=== PATIENT | male | born 1965 | race African-American/Black ===

== ENCOUNTER 2020-03-12 14:22 | Inpatient (IN) | payer OTHER ==
--- NOTE | 2020-03-12 17:50 | BHS.RME ---
Substance Use & Tx History - Substance Use History Alcohol Substance amount: 07/12 liqour, 8 16 oz of beer Frequency of use: Daily Substance route: Oral Date of Last Use: 03/12/20 - Last Treatment Date of last treatment: 01/14/2016 Where was last treatment: Detox Physical/Psych/Mental Status - Behavior General Behavior: Increased activity (restlessness, agitation) Eye Contact: Normal Other Behaviors: Mannerisms - Cooperativeness Cooperativeness: Cooperative - Thinking Thought Processes: Tight Thought content: Future oriented - Physical Health Problems Is patient presently having any pain?: Yes Does patient presently have any injuries (include location): No Does patient currently have a fever: No CIWA Nausea/Vomitin Muscle Tremors: 2 Anxiety: 2 Agitation: 2 Paroxysmal Sweats: No Perspiration Orientation: 0-Oriented Tacttile Disturbances: 0-None Auditory Disturbances: 1-Very Mild Visual Disturbances: 0-None Headache: 4-Moderately Severe CIWA-Ar Total Score: 13
--- NOTE | 2020-03-12 17:55 | HP ---
CIWA Score Nausea/Vomitin Muscle Tremors: 2 Anxiety: 2 Agitation: 2 Paroxysmal Sweats: No Perspiration Orientation: 0-Oriented Tacttile Disturbances: 0-None Auditory Disturbances: 1-Very Mild Visual Disturbances: 0-None Headache: 4-Moderately Severe CIWA-Ar Total Score: 13 - Admission Criteria OASAS Guidelines: Admission for Medically Managed Detox: Requires at least one of the followin. CIWA greater than 12 2. Seizures within the past 24 hours 3. Delirium tremens within the past 24 hours 4. Hallucinations within the past 24 hours 5. Acute intervention needed for co occurring medical disorder 6. Acute intervention needed for co occurring psychiatric disorder 7. Severe withdrawal that cannot be handled at a lower level of care (continued vomiting, continued diarrhea, abnormal vital signs) requiring intravenous medication and/or fluids 8. Patient presents the following: CIWA greater than 12 Admission Criteria Met: Admission criteria met Admitting History and Physical - Smoking History Smoking history: Current every day smoker Have you smoked in the past 12 months: Yes Aproximately how many cigarettes per day: 10 - Alcohol/Substance Use Hx Alcohol Use: Yes Admission ROS S - HPI Chief Complaint: I need to stop drinking Allergies/Adverse Reactions: Allergies Allergy/AdvReac Type Severity Reaction Status Date / Time pork derived (porcine) Allergy Vomiting Verified 01/24/16 19:16 shellfish derived AdvReac Severe Swelling Verified 01/24/16 19:16 tomato AdvReac Severe Hives Verified 01/25/16 12:48 peanut oil AdvReac Intermediate Vomiting Verified 01/24/16 19:16 red sauce AdvReac Severe Swelling Uncoded 01/24/16 19:16 History of Present Illness: 54 year old man with alcohol dependence presents for detox. His last detox was in 2016, he denies seizures, reports blackout 6 months ago Exam Limitations: No Limitations - Ebola screening Have you traveled outside of the country in the last 21 days: No Have you had contact with anyone from an Ebola affected area: No Have you been sick,other than usual withdrawal symptoms: No Do you have a fever: No - Review of Systems Constitutional: Loss of Appetite, Changes in sleep EENT: reports: No Symptoms Reported Respiratory: reports: No Symptoms reported Cardiac: reports: No Symptoms Reported GI: reports: Nausea, Poor Fluid Intake, Vomiting, Abdominal cramping : reports: No Symptoms Reported Musculoskeletal: reports: Joint Pain, Muscle Pain, Muscle Weakness Integumentary: reports: No Symptoms Reported Neuro: reports: Headache, Tremors Endocrine: reports: No Symptoms Reported Hematology: reports: No Symptoms Reported Psychiatric: reports: Anxious, Depressed Other Systems: Reviewed and Negative Patient History - Patient Medical History Hx Anemia: No Hx Asthma: No Hx Chronic Obstructive Pulmonary Disease (COPD): No Hx Cancer: No Hx Cardiac Disorders: No Hx Congestive Heart Failure: No Hx Hypertension: Yes Hx Hypercholesterolemia: No Hx Pacemaker: No HX Cerebrovascular Accident: No Hx Seizures: No Hx Dementia: No Hx Diabetes: No Hx Gastrointestinal Disorders: Yes (GERD) Hx Liver Disease: No Hx Genitourinary Disorders: No Hx Sexually Transmitted Disorders: No Hx Renal Disease (ESRD): No Hx Thyroid Disease: No Hx Human Immunodeficiency Virus (HIV): No Hx Hepatitis C: No Hx Depression: Yes (Bipolar) Hx Suicide Attempt: No Hx Bipolar Disorder: Yes Hx Schizophrenia: No Other Medical History: OA - Patient Surgical History Past Surgical History: Yes Hx Neurologic Surgery: No Hx Cataract Extraction: No Hx Cardiac Surgery: No Hx Lung Surgery: No Hx Breast Surgery: No Hx Breast Biopsy: No Hx Abdominal Surgery: No Hx Appendectomy: No Hx Cholecystectomy: No Hx Genitourinary Surgery: No Hx Section: No Hx Orthopedic Surgery: No Other Surgical History: NASAL SEPTAL DEVIATION SX IN 2012 Anesthesia Reaction: No - PPD History Previous Implant?: Yes Documented Results: Negative w/proof Implanted On Prior [facility] Admission?: Yes Date: 01/26/16 Results: TBD PPD to be Administered?: Yes - Smoking Cessation Smoking history: Current every day smoker Have you smoked in the past 12 months: Yes Aproximately how many cigarettes per day: 10 Hx Chewing Tobacco Use: No Initiated information on smoking cessation: Yes 'Breaking Loose' booklet given: 03/12/20 Admission Physical Exam BHS - Physical General Appearance: Yes: No Apparent Distress HEENTM: Yes: Hearing grossly Normal, Normocephalic, Normal Voice Respiratory: Yes: Chest Non-Tender, Lungs Clear, Normal Breath Sounds, No Respiratory Distress, No Accessory Muscle Use Neck: Yes: No masses,lesions,Nodules, Supple Breast: Yes: Breast Exam Deferred Cardiology: Yes: Regular Rhythm, Regular Rate, S1, S2 Abdominal: Yes: Normal Bowel Sounds, Non Tender, Soft Genitourinary: Yes: Within Normal Limits Back: Yes: Normal Inspection Musculoskeletal: Yes: full range of Motion, Muscle Pain, Muscle weakness Extremities: Yes: Tremors Neurological: Yes: marketing automation specialist II-XII NML intact, Fully Oriented, Alert, Motor Strength 5/5, Normal Mood/Affect, Normal Response Integumentary: Yes: Normal Color, Dry Lymphatic: Yes: Within Normal Limits - Diagnostic (1) Bipolar II disorder Current Visit: Yes Status: Acute (2) Nicotine dependence Current Visit: Yes Status: Acute Qualifiers: Nicotine product type: cigarettes Substance use status: uncomplicated Qualified Code(s): F17.210 - Nicotine dependence, cigarettes, uncomplicated (3) Alcohol dependence with uncomplicated withdrawal Current Visit: No Status: Chronic (4) Hypertension Current Visit: Yes Status: Chronic Qualifiers: Hypertension type: essential hypertension (5) Arthritis Current Visit: Yes Status: Acute (6) Low back pain Current Visit: Yes Status: Acute Qualifiers: Chronicity: chronic Back pain laterality: bilateral Sciatica presence: without sciatica Qualified Code(s): M54.5 - Low back pain; G89.29 - Other chronic pain (7) GERD (gastroesophageal reflux disease) Current Visit: Yes Status: Acute Qualifiers: Esophagitis presence: without esophagitis Qualified Code(s): K21.9 - Gastro-esophageal reflux disease without esophagitis Cleared for Admission S - Detox or Rehab [facility] Level of Care: Medically Managed Detox Regimen/Protocol: Librium Claeared for Rehab Admission: No Breathalyzer - Breathalyzer Breathalyzer: 0 Urine Drug Screen - Test Device Lot number: [id number] Expiration date: 10/13/21 - Control Is test valid?: Yes - Results Drug screen NEGATIVE: No Urine drug screen results: BRINDA-Cocaine Inpatient Rehab Admission - Rehab Decision to Admit Inpatient rehab admission?: No
[2020-03-12] MEDS ORDERED: BISMUTH SUBSALICYLATE 524 MG/30 ML UD PO PRN (17:57)
[2020-03-12] MEDS ORDERED: MAGNESIUM HYDROX 2400MG/30ML ORAL SUSPENSION 30 ML CUP PO PRN (17:57)
[2020-03-12] MEDS ORDERED: NICOTINE POLACRILEX 2 MG GUM BUC PRN (17:57)
[2020-03-12] MEDS ORDERED: MENTHOL/PHENOL 1 EACH UD MM PRN (17:57)
[2020-03-12] MEDS ORDERED: MAGNESIUM CITRATE 300 ML BOTTLE PO PRN (17:57)
[2020-03-12] MEDS ORDERED: chlordiazePOXIDE HCL 10 MG CAPSULE PO PRN (17:57)
[2020-03-12] MEDS ORDERED: ACETAMINOPHEN 325 MG TABLET (FP) PO PRN ×2 (17:57)
[2020-03-12] MEDS ORDERED: MAG HYDROX/AL HYDROX/SIMETH 30 ML UNIT-DOSE CUP PO PRN (17:57)
[2020-03-12] MEDS ORDERED: IBUPROFEN 400 MG TABLET (FP) PO PRN (17:57)
[2020-03-12] MEDS ORDERED: ONDANSETRON *ODT* 4 MG TABLET SL ONE (17:57)
[2020-03-12] MEDS ORDERED: METHOCARBAMOL 500 MG TABLET PO PRN (17:57)
[2020-03-12 18:14] VITALS: BMI 26.4
[2020-03-12] MEDS: hydrOXYzine PAMOATE 25 MG CAPSULE (FP) PO SCH ×2 (18:48→23:35)
[2020-03-12] MEDS: chlordiazePOXIDE HCL 25 MG CAPSULE PO SCH (23:35)
[2020-03-12] MEDS: MELATONIN 5 MG TABLETS PO SCH (23:35)
[2020-03-12] MEDS: THIAMINE HCL 100 MG TABLET (FP) PO SCH (23:36)
[2020-03-13] MEDS: chlordiazePOXIDE HCL 25 MG CAPSULE PO SCH ×3 (05:34→22:41)
[2020-03-13] MEDS: hydrOXYzine PAMOATE 25 MG CAPSULE (FP) PO SCH ×5 (05:34→22:41)
[2020-03-13] MEDS: PRENATAL VITAMINS W/ FOLIC ACID TABLET (FP) PO SCH (10:23)
[2020-03-13] MEDS: NICOTINE 7 MG/24 HOURS TOPICAL PATCH TD SCH (10:24)
[2020-03-13 11:09] LABS: BILIRUBIN,TOTAL 0.5 mg/dL (0.2-1); BLOOD UREA NITROGEN 10.5 mg/dL (7-18); CALCIUM 8.6 mg/dL (8.5-10.1); CREATININE 1.2 mg/dL (0.55-1.3); POTASSIUM 4.1 mmol/L (3.5-5.1)
--- NOTE | 2020-03-13 11:24 | PN ---
[facility] CIWA - CIWA Score Nausea/Vomitin-Mild Nausea/No Vomiting Muscle Tremors: 3 Anxiety: 3 Agitation: 2 Paroxysmal Sweats: 3 Orientation: 0-Oriented Tacttile Disturbances: 0-None Auditory Disturbances: 0-None Visual Disturbances: 0-None Headache: 0-None Present CIWA-Ar Total Score: 12 S Progress Note (SOAP) Subjective: Complaints of mild nausea, tremors, sweats, anxiety, and agitation. Objective: 03/13/20 11:23 Vital Signs 03/13/20 03/13/20 05:31 09:15 Temperature 97.2 F L 97.8 F Pulse Rate 51 L 74 Respiratory 16 17 Rate Blood Pressure 123/81 127/77 O2 Sat by Pulse 100 100 Oximetry (%) Laboratory Last Values Sodium 144 mmol/L (136-145) 03/13/20 07:20 Potassium 4.1 mmol/L (3.5-5.1) 03/13/20 07:20 Chloride 109 mmol/L (98-107) H 03/13/20 07:20 Carbon Dioxide 30 mmol/L (21-32) 03/13/20 07:20 Anion Gap 5 MMOL/L (8-16) L 03/13/20 07:20 BUN 10.5 mg/dL (7-18) 03/13/20 07:20 Creatinine 1.2 mg/dL (0.55-1.3) 03/13/20 07:20 Est GFR (CKD-EPI)AfAm 78.98 03/13/20 07:20 Est GFR (CKD-EPI)NonAf 68.14 03/13/20 07:20 Random Glucose 108 mg/dL (74-106) H 03/13/20 07:20 Calcium 8.6 mg/dL (8.5-10.1) 03/13/20 07:20 Total Bilirubin 0.5 mg/dL (0.2-1) 03/13/20 07:20 AST 19 U/L (15-37) 03/13/20 07:20 ALT 23 U/L (13-61) 03/13/20 07:20 Alkaline Phosphatase 51 U/L (45-117) 03/13/20 07:20 Total Protein 6.0 g/dl (6.4-8.2) L 03/13/20 07:20 Albumin 3.0 g/dl (3.4-5.0) L 03/13/20 07:20 Labs noted. Assessment: 03/13/20 11:24 Alert and oriented x 3, in no acute respiratory distress. Full ROM, ambulatory in unit without any assistance. Skin warm to touch without any lesions. Withdrawal symptoms. Plan: Continue detox protocol.
[2020-03-13 11:36] LABS: HEMATOCRIT 39.2 % (35.4-49); HEMOGLOBIN 12.9 GM/dL (11.7-16.9); MCH 30.6 pg (25.7-33.7); MEAN CELL VOLUME 92.9 fl (80-96); MEAN PLT VOLUME 7.5 fl (7.5-11.1); PLATELET COUNT 383 K/MM3 (134-434); RBC 4.22 M/mm3 (4.00-5.60); RDW 14.3 % (11.9-15.9); WHITE BLOOD COUNT 5.1 K/mm3 (4.0-10.0)
[2020-03-13] MEDS: THIAMINE HCL 100 MG TABLET (FP) PO SCH (22:41)
[2020-03-13] MEDS: MELATONIN 5 MG TABLETS PO SCH (22:41)
[2020-03-14] MEDS: chlordiazePOXIDE 5 MG CAPSULE PO SCH ×3 (05:12→22:14)
[2020-03-14] MEDS: hydrOXYzine PAMOATE 25 MG CAPSULE (FP) PO SCH ×5 (05:13→22:14)
[2020-03-14] MEDS: NICOTINE 7 MG/24 HOURS TOPICAL PATCH TD SCH (10:39)
[2020-03-14] MEDS: PRENATAL VITAMINS W/ FOLIC ACID TABLET (FP) PO SCH (10:39)
--- NOTE | 2020-03-14 11:23 | PN ---
S CIWA - CIWA Score Nausea/Vomitin-No Nausea/No Vomiting Muscle Tremors: 2 Anxiety: 2 Agitation: 0-Normal Activity Paroxysmal Sweats: 2 Orientation: 0-Oriented Tacttile Disturbances: 0-None Auditory Disturbances: 0-None Visual Disturbances: 0-None Headache: 2-Mild CIWA-Ar Total Score: 8 BHS Progress Note (SOAP) Subjective: c/o sweats, anxiety, shakes, and headache. Objective: 03/14/20 11:24 Vital Signs 03/14/20 03/14/20 05:35 08:45 Temperature 97.3 F L 98.6 F Pulse Rate 60 94 H Respiratory 18 18 Rate Blood Pressure 121/60 128/86 O2 Sat by Pulse 100 Oximetry (%) Laboratory Last Values WBC 5.1 K/mm3 (4.0-10.0) 03/13/20 07:30 RBC 4.22 M/mm3 (4.00-5.60) 03/13/20 07:30 Hgb 12.9 GM/dL (11.7-16.9) 03/13/20 07:30 Hct 39.2 % (35.4-49) 03/13/20 07:30 MCV 92.9 fl (80-96) 03/13/20 07:30 MCH 30.6 pg (25.7-33.7) 03/13/20 07:30 MCHC 33.0 g/dl (32.0-35.9) 03/13/20 07:30 RDW 14.3 % (11.9-15.9) 03/13/20 07:30 Plt Count 383 K/MM3 (134-434) 03/13/20 07:30 MPV 7.5 fl (7.5-11.1) 03/13/20 07:30 Sodium 144 mmol/L (136-145) 03/13/20 07:20 Potassium 4.1 mmol/L (3.5-5.1) 03/13/20 07:20 Chloride 109 mmol/L (98-107) H 03/13/20 07:20 Carbon Dioxide 30 mmol/L (21-32) 03/13/20 07:20 Anion Gap 5 MMOL/L (8-16) L 03/13/20 07:20 BUN 10.5 mg/dL (7-18) 03/13/20 07:20 Creatinine 1.2 mg/dL (0.55-1.3) 03/13/20 07:20 Est GFR (CKD-EPI)AfAm 78.98 03/13/20 07:20 Est GFR (CKD-EPI)NonAf 68.14 03/13/20 07:20 Random Glucose 108 mg/dL (74-106) H 03/13/20 07:20 Calcium 8.6 mg/dL (8.5-10.1) 03/13/20 07:20 Total Bilirubin 0.5 mg/dL (0.2-1) 03/13/20 07:20 AST 19 U/L (15-37) 03/13/20 07:20 ALT 23 U/L (13-61) 03/13/20 07:20 Alkaline Phosphatase 51 U/L (45-117) 03/13/20 07:20 Total Protein 6.0 g/dl (6.4-8.2) L 03/13/20 07:20 Albumin 3.0 g/dl (3.4-5.0) L 03/13/20 07:20 Syphilis Serology Non-reactive (NONREACTIVE) 03/13/20 07:20 COVID-19 (LEON) Not detected (Not Detected) 03/12/20 17:58 Labs noted. Assessment: 03/14/20 11:24 AOX3, in no acute respiratory distress. Full ROM, ambulating in the unit. Withdrawal symptoms. Plan: continue detox.
--- NOTE | 2020-03-14 14:49 | CONSULT ---
[facility] Psychiatric Consult - Data Date of interview: 03/14/20 Admission source: Self-referred Identifying data: Mr Brown is a for 54 years old single Black male, father of 2 children, unemployed with no source of income, homeless seeking detox treatment for alcohol and cocaine Substance Abuse History: Reports history of alcohol and cocaine use. Refer to addiction counselor's summary for further information Medical History: Significant for hypertension, GERD, arthritis right knee, gallbladder stones, low back pain, and history of surgery for nasal septal deviation in 2012. Smokes 10 cigaretees daily Psychiatric History: Patient is known for one previous admission to this facility. He reports that his first psychiatric contact was in November 2014 while admitted to [facility] for inpt rehab. He saw a psychiatrist who diagnosed him with Bipolar, Depression and anxiety and prescribed Celexa 20 mg/day, Lamictal 100 mg/day and Hydroxyzine. Following discharge, he attended [facility] er at [address] [place] [address] in [place] and was continued on same medications. Reports that he still receives OPD care at same facility but he has not seen the psychiatrist for 3 months and stopped taking all medications because he was using. Denies previous psychiatric hospitalization or suicidal attempt. At present, denies experiencing psychotic, manic or depressive symptoms. However, he is parth irritable and reports sleeping poorly Physical/Sexual Abuse/Trauma History: Denies history of physical,sexual abuse as well as DV relationship Additional Comment: Reports history of multiple arrests including 2 felony convictions. Denies being on parole/probation curently Mental Status Exam - Mental Status Exam Alert and Oriented to: Time, Place, Person Cognitive Function: Fair Patient Appearance: Well Groomed Mood: Irritable Affect: Appropriate Patient Behavior: Cooperative Speech Pattern: Clear Voice Loudness: Normal Thought Process: Intact, Goal Oriented Thought Disorder: Not Present Hallucinations: Denies Suicidal Ideation: Denies Homicidal Ideation: Denies Insight/Judgement: Poor Sleep: Poorly Appetite: Fair Muscle strength/Tone: Normal Gait/Station: Normal Psychiatric Findings - Problem List ([place] 1, 2,3) (1) Bipolar disorder Current Visit: Yes Status: Chronic (2) Substance induced mood disorder Current Visit: Yes Status: Acute (3) Substance-induced sleep disorder Current Visit: Yes Status: Acute (4) Alcohol dependence with uncomplicated withdrawal Current Visit: No Status: Acute (5) Cocaine dependence, uncomplicated Current Visit: No Status: Acute (6) Nicotine dependence Current Visit: Yes Status: Chronic Qualifiers: Nicotine product type: cigarettes Substance use status: uncomplicated Qualified Code(s): F17.210 - Nicotine dependence, cigarettes, uncomplicated (7) Arthritis Current Visit: Yes Status: Chronic (8) GERD (gastroesophageal reflux disease) Current Visit: Yes Status: Chronic Qualifiers: Esophagitis presence: without esophagitis Qualified Code(s): K21.9 - Gastro-esophageal reflux disease without esophagitis (9) Low back pain Current Visit: Yes Status: Chronic Qualifiers: Chronicity: chronic Back pain laterality: bilateral Sciatica presence: without sciatica Qualified Code(s): M54.5 - Low back pain; G89.29 - Other chronic pain (10) Hypertension Current Visit: Yes Status: Chronic Qualifiers: Hypertension type: essential hypertension Qualified Code(s): I10 - Essential (primary) hypertension - Initial Treatment Plan Initial Treatment Plan: 1) Resume Abilify 10 mg po daily and Seroquel 100 mg po HS. 2) Continue inpatient detoxification
[2020-03-14] MEDS: ARIPiprazole 10 MG TABLET PO SCH (15:30)
[2020-03-14] MEDS: THIAMINE HCL 100 MG TABLET (FP) PO SCH (22:14)
[2020-03-14] MEDS: MELATONIN 5 MG TABLETS PO SCH (22:15)
[2020-03-14] MEDS: QUEtiapine FUMARATE 100 MG TABLET (FP) PO SCH (22:19)
[2020-03-15] MEDS ORDERED: chlordiazePOXIDE HCL 10 MG CAPSULE PO PRN
[2020-03-15] MEDS: hydrOXYzine PAMOATE 25 MG CAPSULE (FP) PO SCH (05:07)
[2020-03-15] MEDS: chlordiazePOXIDE HCL 10 MG CAPSULE PO SCH ×3 (05:07→21:43)
[2020-03-15] MEDS ORDERED: hydrOXYzine PAMOATE 25 MG CAPSULE (FP) PO PRN (09:50)
--- NOTE | 2020-03-15 09:54 | PN ---
S CIWA - CIWA Score Nausea/Vomitin-No Nausea/No Vomiting Muscle Tremors: None Anxiety: 1-Mildly Anxious Agitation: 1-Slight > Activity Paroxysmal Sweats: 1-Minimal Palms Moist Orientation: 0-Oriented Tacttile Disturbances: 0-None Auditory Disturbances: 0-None Visual Disturbances: 0-None Headache: 0-None Present CIWA-Ar Total Score: 3 BHS Progress Note (SOAP) Subjective: irritable sweats Objective: 03/15/20 09:53 Vital Signs Temperature 98.5 F 03/15/20 08:37 Pulse Rate 62 03/15/20 08:37 Respiratory Rate 18 03/15/20 08:37 Blood Pressure 117/65 03/15/20 08:37 O2 Sat by Pulse Oximetry (%) 96 03/15/20 08:37 aaox3 lying down no acute distress Assessment: 03/15/20 09:54 mild withdrawals Plan: continue detox d/c in am
[2020-03-15] MEDS: ARIPiprazole 10 MG TABLET PO SCH (10:32)
[2020-03-15] MEDS: NICOTINE 7 MG/24 HOURS TOPICAL PATCH TD SCH (10:33)
[2020-03-15] MEDS: PRENATAL VITAMINS W/ FOLIC ACID TABLET (FP) PO SCH (10:33)
[2020-03-15] MEDS: MELATONIN 5 MG TABLETS PO SCH (21:43)
[2020-03-15] MEDS: QUEtiapine FUMARATE 100 MG TABLET (FP) PO SCH (21:43)
[2020-03-15] MEDS: THIAMINE HCL 100 MG TABLET (FP) PO SCH (21:43)
[2020-03-16] MEDS ORDERED: chlordiazePOXIDE HCL 10 MG CAPSULE PO ONE (05:00)
[2020-03-16 09:05] VITALS: BP 114/72; PULSE 75; TEMP 97.1
--- NOTE | 2020-03-16 09:22 | DS ---
[facility] Detox Discharge Summary Admission Date: 03/12/20 Discharge Date: 03/16/20 - History Present History: Alcohol Dependence, Cocaine Dependence - Physical Exam Results Vital Signs: Vital Signs Temperature 97.1 F L 03/16/20 08:56 Pulse Rate 75 03/16/20 08:56 Respiratory Rate 16 03/16/20 08:56 Blood Pressure 114/72 03/16/20 08:56 O2 Sat by Pulse Oximetry (%) 96 03/16/20 05:08 Pertinent Admission Physical Exam Findings: Vital Signs Temperature 97.1 F L 03/16/20 08:56 Pulse Rate 75 03/16/20 08:56 Respiratory Rate 16 03/16/20 08:56 Blood Pressure 114/72 03/16/20 08:56 O2 Sat by Pulse Oximetry (%) 96 03/16/20 05:08 Laboratory Tests 03/12/20 03/13/20 03/13/20 17:58 07:20 07:20 WBC RBC Hgb Hct MCV MCH MCHC RDW Plt Count MPV Sodium 144 Potassium 4.1 Chloride 109 H Carbon Dioxide 30 Anion Gap 5 L BUN 10.5 Creatinine 1.2 Est GFR (CKD-EPI)AfAm 78.98 Est GFR (CKD-EPI)NonAf 68.14 Random Glucose 108 H Calcium 8.6 Total Bilirubin 0.5 AST 19 ALT 23 Alkaline Phosphatase 51 Total Protein 6.0 L Albumin 3.0 L Syphilis Serology Non-reactive COVID-19 ([facility]ON) Not detected 03/13/20 07:30 WBC 5.1 RBC 4.22 Hgb 12.9 Hct 39.2 MCV 92.9 MCH 30.6 MCHC 33.0 RDW 14.3 Plt Count 383 MPV 7.5 Sodium Potassium Chloride Carbon Dioxide Anion Gap BUN Creatinine Est GFR (CKD-EPI)AfAm Est GFR (CKD-EPI)NonAf Random Glucose Calcium Total Bilirubin AST ALT Alkaline Phosphatase Total Protein Albumin Syphilis Serology COVID-19 (LEON) aaox3 ambulating no acute distress lungs CTA - Treatment Hospital Course: Detox Protocol Followed, Detoxed Safely, Responded well, Discharged Condition Good, Rehab Referral Accepted - Medication Discharge Medications: Ambulatory Orders Omeprazole [Prilosec] 40 mg PO DAILY #30 capsule. 02/13/16 Citalopram Hydrobromide [Celexa -] 20 mg PO DAILY #30 tablet 02/15/16 Lamotrigine [Lamictal -] 50 mg PO DAILY #60 tablet 02/15/16 Aripiprazole [Abilify -] 10 mg PO DAILY 03/12/20 Hydralazine HCl 25 mg PO BID 03/12/20 Ondansetron HCl [Zofran] 4 mg PO TID 03/12/20 Quetiapine Fumarate [Seroquel -] 100 mg PO HS 03/12/20 - Diagnosis (1) Bipolar II disorder Current Visit: Yes Status: Acute (2) Substance induced mood disorder Current Visit: Yes Status: Acute (3) Substance-induced sleep disorder Current Visit: Yes Status: Acute (4) Arthritis Current Visit: Yes Status: Chronic (5) Bipolar disorder Current Visit: Yes Status: Chronic (6) GERD (gastroesophageal reflux disease) Current Visit: Yes Status: Chronic Qualifiers: Esophagitis presence: without esophagitis Qualified Code(s): K21.9 - Gastro-esophageal reflux disease without esophagitis (7) Hypertension Current Visit: Yes Status: Chronic Qualifiers: Hypertension type: essential hypertension Qualified Code(s): I10 - Essential (primary) hypertension (8) Low back pain Current Visit: Yes Status: Chronic Qualifiers: Chronicity: chronic Back pain laterality: bilateral Sciatica presence: without sciatica Qualified Code(s): M54.5 - Low back pain; G89.29 - Other chronic pain (9) Nicotine dependence Current Visit: Yes Status: Chronic Qualifiers: Nicotine product type: cigarettes Substance use status: uncomplicated Qualified Code(s): F17.210 - Nicotine dependence, cigarettes, uncomplicated (10) Alcohol dependence with uncomplicated withdrawal Current Visit: Yes Status: Chronic (11) Cocaine dependence, uncomplicated Current Visit: Yes Status: Chronic - AMA Did Patient Leave Against Medical Advice: No
== END 2020-03-16 09:43 | disposition home or self-care (01) | DRG 774 ==
LOC: YASAS 14:22 → Y6N 18:20
PROVIDERS: ADMIT Allergy & Immunology; ATTEND Allergy & Immunology
PROC: HZ2ZZZZ Detoxification Services for Substance Abuse Treatment (ICD-10-PCS; principal; 2020-03-12)
DX: F10.230 Alcohol dependence with withdrawal, uncomplicated (principal); F14.20 Cocaine dependence, uncomplicated; F17.210 Nicotine dependence, cigarettes, uncomplicated; F31.81 Bipolar II disorder; F19.282 Other psychoactive substance dependence with psychoactive substance-induced sleep disorder; F19.24 Other psychoactive substance dependence with psychoactive substance-induced mood disorder; I10 Essential (primary) hypertension; K21.9 Gastro-esophageal reflux disease without esophagitis; M19.90 Unspecified osteoarthritis, unspecified site; M54.5 Low back pain; G89.29 Other chronic pain; Z56.0 Unemployment, unspecified; Z59.0 Homelessness; Z91.018 Allergy to other foods; Z91.013 Allergy to seafood
CPT/HCPCS: 36415; 80053; 85027; 86780; Q0162; U0003

== ENCOUNTER 2020-11-27 10:56 | Inpatient (IN) | payer OTHER ==
[2020-11-27 11:56] VITALS: BMI 25.7
[2020-11-27] MEDS ORDERED: BISMUTH SUBSALICYLATE 524 MG/30 ML PO PRN (12:51)
[2020-11-27] MEDS ORDERED: MAGNESIUM HYDROX 2400MG/30ML ORAL SUSPENSION 30 ML CUP PO PRN (12:51)
[2020-11-27] MEDS ORDERED: MAGNESIUM CITRATE 300 ML BOTTLE PO PRN (12:51)
[2020-11-27] MEDS ORDERED: ACETAMINOPHEN 325 MG TABLET (FP) PO PRN ×2 (12:51)
[2020-11-27] MEDS ORDERED: NICOTINE POLACRILEX 2 MG GUM BUC PRN (12:51)
[2020-11-27] MEDS ORDERED: IBUPROFEN 400 MG TABLET (FP) PO PRN (12:51)
[2020-11-27] MEDS ORDERED: LORazepam 1 MG TABLET PO PRN (12:51)
[2020-11-27] MEDS ORDERED: MAG HYDROX/AL HYDROX/SIMETH 30 ML UNIT-DOSE CUP PO PRN (12:51)
[2020-11-27] MEDS ORDERED: MENTHOL/PHENOL 1 EACH UD MM PRN (12:51)
[2020-11-27] MEDS ORDERED: METHOCARBAMOL 500 MG TABLET PO PRN (12:51)
[2020-11-27] MEDS ORDERED: ONDANSETRON *ODT* 4 MG TABLET SL PRN (12:51)
[2020-11-27] MEDS: NICOTINE 21 MG/24 HOURS TOPICAL PATCH TD SCH (15:00)
[2020-11-27] MEDS: hydrOXYzine PAMOATE 25 MG CAPSULE (FP) PO SCH ×3 (15:00→23:48)
[2020-11-27] MEDS: LORazepam 2 MG TABLET PO SCH ×2 (18:30→22:39)
[2020-11-27] MEDS: THIAMINE HCL 100 MG TABLET (FP) PO SCH (22:39)
[2020-11-27] MEDS: MELATONIN 5 MG TABLETS PO SCH (23:48)
[2020-11-28] MEDS: hydrOXYzine PAMOATE 25 MG CAPSULE (FP) PO SCH ×5 (05:26→22:40)
[2020-11-28] MEDS: LORazepam 2 MG TABLET PO SCH ×4 (05:26→22:40)
[2020-11-28 10:18] LABS: HEMATOCRIT 35.6 % (35.4-49); HEMOGLOBIN 12.1 GM/dL (11.7-16.9); MCH 30.6 pg (25.7-33.7); MEAN CELL VOLUME 89.9 fl (80-96); MEAN PLT VOLUME 6.8 fl (7.5-11.1); PLATELET COUNT 582 K/MM3 (134-434); RBC 3.96 M/mm3 (4.00-5.60); RDW 13.3 % (11.9-15.9); WHITE BLOOD COUNT 6.3 K/mm3 (4.0-10.0)
[2020-11-28 10:33] LABS: CALCIUM 8.5 mg/dL (8.5-10.1)
[2020-11-28 10:34] LABS: BLOOD UREA NITROGEN 14.5 mg/dL (7-18)
[2020-11-28 10:38] LABS: BILIRUBIN,TOTAL 0.2 mg/dL (0.2-1)
[2020-11-28 10:39] LABS: TOT PROT 6.2 g/dl (6.4-8.2)
[2020-11-28] MEDS: PRENATAL VITAMINS W/ FOLIC ACID TABLET (FP) PO SCH (10:48)
[2020-11-28] MEDS: NICOTINE 21 MG/24 HOURS TOPICAL PATCH TD SCH (10:49)
[2020-11-28] MEDS: FAMOTIDINE 20 MG TABLET PO SCH ×2 (10:50→22:39)
[2020-11-28] MEDS: MELATONIN 5 MG TABLETS PO SCH (22:39)
[2020-11-28] MEDS: THIAMINE HCL 100 MG TABLET (FP) PO SCH (22:40)
[2020-11-29] MEDS: LORazepam 1 MG TABLET PO SCH ×4 (05:36→23:13)
[2020-11-29] MEDS: hydrOXYzine PAMOATE 25 MG CAPSULE (FP) PO SCH ×5 (05:36→23:13)
[2020-11-29] MEDS: PRENATAL VITAMINS W/ FOLIC ACID TABLET (FP) PO SCH (11:01)
[2020-11-29] MEDS: FAMOTIDINE 20 MG TABLET PO SCH ×2 (11:01→23:13)
[2020-11-29] MEDS: NICOTINE 21 MG/24 HOURS TOPICAL PATCH TD SCH (11:44)
[2020-11-29] MEDS: MELATONIN 5 MG TABLETS PO SCH (23:12)
[2020-11-29] MEDS: THIAMINE HCL 100 MG TABLET (FP) PO SCH (23:13)
[2020-11-30] MEDS ORDERED: LORazepam 0.5 MG TABLET PO PRN
[2020-11-30] MEDS: hydrOXYzine PAMOATE 25 MG CAPSULE (FP) PO SCH ×5 (06:17→22:40)
[2020-11-30] MEDS: LORazepam 0.5 MG TABLET PO SCH ×4 (06:17→22:41)
[2020-11-30 10:16] LABS: HEMATOCRIT 36.2 % (35.4-49); HEMOGLOBIN 12.3 GM/dL (11.7-16.9); MCH 30.7 pg (25.7-33.7); MCHC 34.1 g/dl (32.0-35.9); MEAN CELL VOLUME 90.2 fl (80-96); MEAN PLT VOLUME 6.9 fl (7.5-11.1); PLATELET COUNT 551 K/MM3 (134-434); RBC 4.02 M/mm3 (4.00-5.60); RDW 13.2 % (11.9-15.9); WHITE BLOOD COUNT 7.3 K/mm3 (4.0-10.0)
[2020-11-30] MEDS: PRENATAL VITAMINS W/ FOLIC ACID TABLET (FP) PO SCH (10:35)
[2020-11-30] MEDS: FAMOTIDINE 20 MG TABLET PO SCH ×2 (10:35→22:40)
[2020-11-30] MEDS: NICOTINE 21 MG/24 HOURS TOPICAL PATCH TD SCH (10:36)
[2020-11-30] MEDS: MELATONIN 5 MG TABLETS PO SCH (22:40)
[2020-11-30] MEDS: THIAMINE HCL 100 MG TABLET (FP) PO SCH (22:40)
[2020-12-01] MEDS ORDERED: LORazepam 0.5 MG TABLET PO ONE (05:00)
[2020-12-01] MEDS: hydrOXYzine PAMOATE 25 MG CAPSULE (FP) PO SCH (06:23)
[2020-12-01 08:40] VITALS: BP 128/72; PULSE 67; TEMP 96.6
== END 2020-12-01 09:32 | disposition other institution (70) | DRG 774 ==
LOC: YASAS 10:56 → Y6N 14:27
PROVIDERS: ADMIT Allergy & Immunology; ATTEND Allergy & Immunology
PROC: HZ2ZZZZ Detoxification Services for Substance Abuse Treatment (ICD-10-PCS; principal; 2020-11-27)
DX: F10.230 Alcohol dependence with withdrawal, uncomplicated (principal); F14.20 Cocaine dependence, uncomplicated; F17.210 Nicotine dependence, cigarettes, uncomplicated; F31.81 Bipolar II disorder; F41.9 Anxiety disorder, unspecified; F19.24 Other psychoactive substance dependence with psychoactive substance-induced mood disorder; I10 Essential (primary) hypertension; K21.9 Gastro-esophageal reflux disease without esophagitis; M17.11 Unilateral primary osteoarthritis, right knee; M54.5 Low back pain; Z56.0 Unemployment, unspecified; Z59.0 Homelessness; Z91.013 Allergy to seafood; Z91.018 Allergy to other foods
CPT/HCPCS: 36415; 80053; 82947; 85027; 86780; C9803; U0003; U0005

== ENCOUNTER 2021-07-08 14:59 | Inpatient (IN) | payer OTHER ==
[2021-07-08 16:56] VITALS: BMI 26.4
[2021-07-08] MEDS ORDERED: hydrOXYzine PAMOATE 25 MG CAPSULE (FP) PO PRN (17:25)
[2021-07-08] MEDS ORDERED: IBUPROFEN 400 MG TABLET (FP) PO PRN (17:25)
[2021-07-08] MEDS ORDERED: DICYCLOMINE HCL 10 MG CAPSULE PO PRN (17:25)
[2021-07-08] MEDS ORDERED: MAGNESIUM HYDROX 2400MG/30ML ORAL SUSPENSION 30 ML CUP PO PRN (17:25)
[2021-07-08] MEDS ORDERED: BISMUTH SUBSALICYLATE 524 MG/30 ML PO PRN (17:25)
[2021-07-08] MEDS ORDERED: MAG HYDROX/AL HYDROX/SIMETH 30 ML UNIT-DOSE CUP PO PRN (17:25)
[2021-07-08] MEDS ORDERED: METHOCARBAMOL 500 MG TABLET PO PRN (17:25)
[2021-07-08] MEDS ORDERED: MAGNESIUM CITRATE 300 ML BOTTLE PO PRN (17:25)
[2021-07-08] MEDS ORDERED: ONDANSETRON *ODT* 4 MG TABLET SL PRN (17:25)
[2021-07-08] MEDS ORDERED: ACETAMINOPHEN 325 MG TABLET (FP) PO PRN ×2 (17:25)
[2021-07-08] MEDS ORDERED: LOPERAMIDE HCL 2 MG CAPSULE PO PRN (17:25)
[2021-07-08] MEDS ORDERED: MENTHOL/PHENOL 1 EACH UD MM PRN (17:25)
[2021-07-08] MEDS ORDERED: chlordiazePOXIDE HCL 25 MG CAPSULE PO PRN (17:27)
[2021-07-08] MEDS: MELATONIN 5 MG TABLETS PO SCH (23:56)
[2021-07-08] MEDS: THIAMINE HCL 100 MG TABLET (FP) PO SCH (23:56)
[2021-07-08] MEDS: chlordiazePOXIDE HCL 25 MG CAPSULE PO SCH (23:57)
[2021-07-09] MEDS: chlordiazePOXIDE HCL 25 MG CAPSULE PO SCH ×5 (00:03→23:28)
[2021-07-09] MEDS: OFLOXACIN 0.3% OTIC SOLUTION 5 ML BOTTLE AS SCH ×5 (00:04→23:28)
[2021-07-09] MEDS: PRENATAL VITAMINS W/ FOLIC ACID TABLET (FP) PO SCH (10:43)
[2021-07-09] MEDS: NICOTINE 7 MG/24 HOURS TOPICAL PATCH TD SCH (10:43)
[2021-07-09] MEDS: ARIPiprazole 10 MG TABLET PO SCH (10:44)
[2021-07-09] MEDS ORDERED: QUEtiapine FUMARATE 100 MG TABLET (FP) PO SCH (22:00)
[2021-07-09] MEDS: MELATONIN 5 MG TABLETS PO SCH (23:29)
[2021-07-09] MEDS: THIAMINE HCL 100 MG TABLET (FP) PO SCH (23:29)
[2021-07-10] MEDS: chlordiazePOXIDE HCL 25 MG CAPSULE PO SCH ×2 (05:57→12:09)
[2021-07-10 09:03] VITALS: BP 117/76; PULSE 67; TEMP 97.2
[2021-07-10] MEDS: OFLOXACIN 0.3% OTIC SOLUTION 5 ML BOTTLE AS SCH (12:09)
[2021-07-10] MEDS: NICOTINE 7 MG/24 HOURS TOPICAL PATCH TD SCH (12:09)
[2021-07-10] MEDS: PRENATAL VITAMINS W/ FOLIC ACID TABLET (FP) PO SCH (12:10)
[2021-07-10] MEDS: ARIPiprazole 10 MG TABLET PO SCH (12:10)
[2021-07-10 12:25] LABS: HEMATOCRIT 43.6 % (35.4-49); HEMOGLOBIN 14.3 GM/dL (11.7-16.9); MCH 28.9 pg (25.7-33.7); MCHC 32.7 g/dl (32.0-35.9); MEAN CELL VOLUME 88.5 fl (80-96); MEAN PLT VOLUME 7.3 fl (7.5-11.1); PLATELET COUNT 379 10^3/uL (134-434); RBC 4.93 M/mm3 (4.00-5.60); RDW 13.7 % (11.9-15.9); WHITE BLOOD COUNT 4.2 K/mm3 (4.0-10.0)
[2021-07-10 13:10] LABS: ALBUMIN 3.5 g/dl (3.4-5.0); BLOOD UREA NITROGEN 11.3 mg/dL (7-18); CALCIUM 9.2 mg/dL (8.5-10.1)
[2021-07-10 13:13] LABS: BILIRUBIN,DIRECT 0.1 mg/dL (0.0-0.2); TOT PROT 6.9 g/dl (6.4-8.2)
[2021-07-10 13:15] LABS: BILIRUBIN,TOTAL 0.7 mg/dL (0.2-1)
[2021-07-11] MEDS ORDERED: chlordiazePOXIDE HCL 10 MG CAPSULE PO PRN
[2021-07-11] MEDS ORDERED: chlordiazePOXIDE HCL 10 MG CAPSULE PO SCH (05:00)
[2021-07-12] MEDS ORDERED: chlordiazePOXIDE HCL 10 MG CAPSULE PO SCH (05:00)
[2021-07-13] MEDS ORDERED: chlordiazePOXIDE HCL 10 MG CAPSULE PO ONE (05:00)
== END 2021-07-10 14:08 | disposition left against medical advice (07) | DRG 770 ==
LOC: YASAS 14:59 → Y3N 21:40
PROVIDERS: ADMIT Allergy & Immunology; ATTEND Allergy & Immunology
PROC: HZ2ZZZZ Detoxification Services for Substance Abuse Treatment (ICD-10-PCS; principal; 2021-07-08)
DX: F10.230 Alcohol dependence with withdrawal, uncomplicated (principal); F14.20 Cocaine dependence, uncomplicated; F12.20 Cannabis dependence, uncomplicated; F17.210 Nicotine dependence, cigarettes, uncomplicated; F19.24 Other psychoactive substance dependence with psychoactive substance-induced mood disorder; F31.9 Bipolar disorder, unspecified; F41.9 Anxiety disorder, unspecified; U07.1 COVID-19; I10 Essential (primary) hypertension; K21.9 Gastro-esophageal reflux disease without esophagitis; M17.11 Unilateral primary osteoarthritis, right knee; M54.50 Low back pain, unspecified; Z87.19 Personal history of other diseases of the digestive system; Z56.0 Unemployment, unspecified; Z59.01 Sheltered homelessness; Z91.018 Allergy to other foods
CPT/HCPCS: 36415; 80053; 80076; 82962; 85027; 86780; C9803; U0003; U0005

== ENCOUNTER 2021-09-19 12:38 | Inpatient (IN) | payer OTHER ==
[2021-09-19] MEDS ORDERED: chlordiazePOXIDE HCL 25 MG CAPSULE PO PRN (13:21)
[2021-09-19] MEDS ORDERED: ONDANSETRON *ODT* 4 MG TABLET SL PRN (13:21)
[2021-09-19] MEDS ORDERED: IBUPROFEN 400 MG TABLET (FP) PO PRN (13:21)
[2021-09-19] MEDS ORDERED: MAG HYDROX/AL HYDROX/SIMETH 30 ML UNIT-DOSE CUP PO PRN (13:21)
[2021-09-19] MEDS ORDERED: BISMUTH SUBSALICYLATE 524 MG/30 ML PO PRN (13:21)
[2021-09-19] MEDS ORDERED: MENTHOL/PHENOL 1 EACH UD MM PRN (13:21)
[2021-09-19] MEDS ORDERED: NICOTINE 10 MG CARTRIDGE (INHALER) IH PRN (13:21)
[2021-09-19] MEDS ORDERED: MAGNESIUM HYDROX 2400MG/30ML ORAL SUSPENSION 30 ML CUP PO PRN (13:21)
[2021-09-19] MEDS ORDERED: MAGNESIUM CITRATE 300 ML BOTTLE PO PRN (13:21)
[2021-09-19] MEDS ORDERED: METHOCARBAMOL 500 MG TABLET PO PRN (13:21)
[2021-09-19] MEDS ORDERED: ACETAMINOPHEN 325 MG TABLET (FP) PO PRN ×2 (13:21)
[2021-09-19] MEDS ORDERED: LOPERAMIDE HCL 2 MG CAPSULE PO PRN (13:21)
[2021-09-19 14:34] VITALS: BMI 27.3
[2021-09-19] MEDS: PRENATAL VITAMINS W/ FOLIC ACID TABLET (FP) PO SCH (15:37)
[2021-09-19] MEDS: hydrOXYzine PAMOATE 25 MG CAPSULE (FP) PO SCH ×3 (15:38→22:02)
[2021-09-19] MEDS: NICOTINE 14 MG/24 HOURS TOPICAL PATCH TD SCH (15:38)
[2021-09-19 17:48] LABS: HEMATOCRIT 38.2 % (35.4-49); HEMOGLOBIN 12.8 GM/dL (11.7-16.9); MCH 29.7 pg (25.7-33.7); MCHC 33.4 g/dl (32.0-35.9); MEAN CELL VOLUME 88.9 fl (80-96); MEAN PLT VOLUME 7.3 fl (7.5-11.1); PLATELET COUNT 431 10^3/uL (134-434); RBC 4.29 M/mm3 (4.00-5.60); RDW 13.5 % (11.9-15.9); WHITE BLOOD COUNT 4.7 K/mm3 (4.0-10.0)
[2021-09-19 17:54] LABS: BLOOD UREA NITROGEN 11.1 mg/dL (7-18); CALCIUM 8.9 mg/dL (8.5-10.1)
[2021-09-19 17:55] LABS: ALBUMIN 3.5 g/dl (3.4-5.0)
[2021-09-19 17:58] LABS: CREATININE 1.3 mg/dL (0.55-1.3)
[2021-09-19 17:59] LABS: BILIRUBIN,TOTAL 0.3 mg/dL (0.2-1); TOT PROT 6.9 g/dl (6.4-8.2)
[2021-09-19] MEDS: chlordiazePOXIDE HCL 25 MG CAPSULE PO SCH ×2 (18:21→22:02)
[2021-09-19] MEDS: THIAMINE HCL 100 MG TABLET (FP) PO SCH (22:02)
[2021-09-19] MEDS: MELATONIN 5 MG TABLETS PO SCH (22:02)
[2021-09-20] MEDS: hydrOXYzine PAMOATE 25 MG CAPSULE (FP) PO SCH ×5 (06:20→23:12)
[2021-09-20] MEDS: chlordiazePOXIDE HCL 25 MG CAPSULE PO SCH ×4 (06:20→23:12)
[2021-09-20] MEDS ORDERED: PANTOPRAZOLE 40 MG TABLET PO SCH (10:00)
[2021-09-20] MEDS: hydrALAZINE HCL 25 MG TABLET (FP) PO SCH (10:44)
[2021-09-20] MEDS: PRENATAL VITAMINS W/ FOLIC ACID TABLET (FP) PO SCH (10:44)
[2021-09-20] MEDS: NICOTINE 14 MG/24 HOURS TOPICAL PATCH TD SCH (10:46)
[2021-09-20] MEDS: QUEtiapine FUMARATE 100 MG TABLET (FP) PO SCH (23:11)
[2021-09-20] MEDS: MELATONIN 5 MG TABLETS PO SCH (23:11)
[2021-09-20] MEDS: THIAMINE HCL 100 MG TABLET (FP) PO SCH (23:12)
[2021-09-21] MEDS: chlordiazePOXIDE HCL 25 MG CAPSULE PO SCH ×4 (05:49→22:15)
[2021-09-21] MEDS: hydrOXYzine PAMOATE 25 MG CAPSULE (FP) PO SCH ×5 (05:50→21:40)
[2021-09-21] MEDS: PANTOPRAZOLE 40 MG TABLET PO SCH ×2 (06:21→10:36)
[2021-09-21] MEDS ORDERED: CITALOPRAM HYDROBROMIDE 20 MG TABLET PO SCH (10:00)
[2021-09-21] MEDS: PRENATAL VITAMINS W/ FOLIC ACID TABLET (FP) PO SCH (10:34)
[2021-09-21] MEDS: ESCITALOPRAM OXALATE 10 MG TABLET PO SCH (10:34)
[2021-09-21] MEDS: hydrALAZINE HCL 25 MG TABLET (FP) PO SCH (10:34)
[2021-09-21] MEDS: ARIPiprazole 10 MG TABLET PO SCH (10:35)
[2021-09-21] MEDS: NICOTINE 14 MG/24 HOURS TOPICAL PATCH TD SCH (10:36)
[2021-09-21 14:08] LABS: SARS-CoV-2 NAA Not Detected (Not Detected)
[2021-09-21] MEDS: THIAMINE HCL 100 MG TABLET (FP) PO SCH (21:39)
[2021-09-21] MEDS: MELATONIN 5 MG TABLETS PO SCH (21:39)
[2021-09-21] MEDS: QUEtiapine FUMARATE 100 MG TABLET (FP) PO SCH (21:40)
[2021-09-22] MEDS ORDERED: chlordiazePOXIDE HCL 10 MG CAPSULE PO PRN
[2021-09-22] MEDS: chlordiazePOXIDE HCL 10 MG CAPSULE PO SCH ×4 (05:23→22:06)
[2021-09-22] MEDS: hydrOXYzine PAMOATE 25 MG CAPSULE (FP) PO SCH ×5 (05:24→22:06)
[2021-09-22] MEDS: PRENATAL VITAMINS W/ FOLIC ACID TABLET (FP) PO SCH (10:52)
[2021-09-22] MEDS: PANTOPRAZOLE 40 MG TABLET PO SCH (10:52)
[2021-09-22] MEDS: ARIPiprazole 10 MG TABLET PO SCH (10:52)
[2021-09-22] MEDS: ESCITALOPRAM OXALATE 10 MG TABLET PO SCH (10:52)
[2021-09-22] MEDS: hydrALAZINE HCL 25 MG TABLET (FP) PO SCH (10:52)
[2021-09-22] MEDS: NICOTINE 14 MG/24 HOURS TOPICAL PATCH TD SCH (11:00)
[2021-09-22] MEDS: QUEtiapine FUMARATE 100 MG TABLET (FP) PO SCH (22:06)
[2021-09-22] MEDS: MELATONIN 5 MG TABLETS PO SCH (22:06)
[2021-09-22] MEDS: THIAMINE HCL 100 MG TABLET (FP) PO SCH (22:06)
[2021-09-23] MEDS: hydrOXYzine PAMOATE 25 MG CAPSULE (FP) PO SCH ×5 (06:21→22:34)
[2021-09-23] MEDS: chlordiazePOXIDE HCL 10 MG CAPSULE PO SCH ×2 (06:21→17:56)
[2021-09-23] MEDS: NICOTINE 14 MG/24 HOURS TOPICAL PATCH TD SCH (10:07)
[2021-09-23] MEDS: ARIPiprazole 10 MG TABLET PO SCH (10:07)
[2021-09-23] MEDS: PANTOPRAZOLE 40 MG TABLET PO SCH (10:07)
[2021-09-23] MEDS: hydrALAZINE HCL 25 MG TABLET (FP) PO SCH (10:07)
[2021-09-23] MEDS: PRENATAL VITAMINS W/ FOLIC ACID TABLET (FP) PO SCH (10:07)
[2021-09-23] MEDS: ESCITALOPRAM OXALATE 10 MG TABLET PO SCH (10:07)
[2021-09-23] MEDS: QUEtiapine FUMARATE 100 MG TABLET (FP) PO SCH (22:34)
[2021-09-23] MEDS: MELATONIN 5 MG TABLETS PO SCH (22:34)
[2021-09-23] MEDS: THIAMINE HCL 100 MG TABLET (FP) PO SCH (22:34)
[2021-09-24] MEDS ORDERED: chlordiazePOXIDE HCL 10 MG CAPSULE PO ONE (05:00)
[2021-09-24] MEDS: hydrOXYzine PAMOATE 25 MG CAPSULE (FP) PO SCH ×2 (05:23→10:36)
[2021-09-24 09:12] VITALS: BP 119/62; PULSE 86; TEMP 98
[2021-09-24] MEDS: PANTOPRAZOLE 40 MG TABLET PO SCH (10:35)
[2021-09-24] MEDS: ARIPiprazole 10 MG TABLET PO SCH (10:35)
[2021-09-24] MEDS: ESCITALOPRAM OXALATE 10 MG TABLET PO SCH (10:35)
[2021-09-24] MEDS: hydrALAZINE HCL 25 MG TABLET (FP) PO SCH (10:35)
[2021-09-24] MEDS: PRENATAL VITAMINS W/ FOLIC ACID TABLET (FP) PO SCH (10:36)
[2021-09-24] MEDS: NICOTINE 14 MG/24 HOURS TOPICAL PATCH TD SCH (10:36)
== END 2021-09-24 11:40 | disposition other institution (70) | DRG 774 ==
LOC: YASAS 12:38 → Y3N 14:13
PROVIDERS: ADMIT Allergy & Immunology; ATTEND Allergy & Immunology
PROC: HZ2ZZZZ Detoxification Services for Substance Abuse Treatment (ICD-10-PCS; principal; 2021-09-19)
DX: F10.230 Alcohol dependence with withdrawal, uncomplicated (principal); F14.20 Cocaine dependence, uncomplicated; F12.20 Cannabis dependence, uncomplicated; F17.210 Nicotine dependence, cigarettes, uncomplicated; F31.9 Bipolar disorder, unspecified; F19.24 Other psychoactive substance dependence with psychoactive substance-induced mood disorder; G47.00 Insomnia, unspecified; I10 Essential (primary) hypertension; K21.9 Gastro-esophageal reflux disease without esophagitis; M17.11 Unilateral primary osteoarthritis, right knee; E78.5 Hyperlipidemia, unspecified; Z91.013 Allergy to seafood; Z91.018 Allergy to other foods
CPT/HCPCS: 36415; 80053; 85027; 86780; 87811; C9803-CS; U0003; U0005

== ENCOUNTER 2022-02-07 13:28 | Inpatient (IN) | payer OTHER ==
[2022-02-07 15:13] VITALS: BMI 28.5
[2022-02-07] MEDS ORDERED: NICOTINE 10 MG CARTRIDGE (INHALER) IH PRN (17:01)
[2022-02-07] MEDS ORDERED: BENZOCAINE/MENTHOL (CHLORASEPTIC ) LOZENGE MM PRN (17:01)
[2022-02-07] MEDS ORDERED: METHOCARBAMOL 500 MG TABLET PO PRN (17:01)
[2022-02-07] MEDS ORDERED: IBUPROFEN 600 MG TABLET (FP) PO PRN (17:01)
[2022-02-07] MEDS ORDERED: BISMUTH SUBSALICYLATE 524 MG/30 ML PO PRN (17:01)
[2022-02-07] MEDS ORDERED: ONDANSETRON *ODT* 4 MG TABLET SL PRN (17:01)
[2022-02-07] MEDS ORDERED: DICYCLOMINE HCL 10 MG CAPSULE PO PRN (17:01)
[2022-02-07] MEDS ORDERED: MAGNESIUM CITRATE 300 ML BOTTLE PO PRN (17:01)
[2022-02-07] MEDS ORDERED: ACETAMINOPHEN 325 MG TABLET (FP) PO PRN (17:01)
[2022-02-07] MEDS ORDERED: LOPERAMIDE HCL 2 MG CAPSULE PO PRN (17:01)
[2022-02-07] MEDS ORDERED: chlordiazePOXIDE HCL 25 MG CAPSULE PO PRN (17:01)
[2022-02-07] MEDS ORDERED: MAGNESIUM HYDROX 2400MG/30ML ORAL SUSPENSION 30 ML CUP PO PRN (17:01)
[2022-02-07] MEDS ORDERED: MAG HYDROX/AL HYDROX/SIMETH 30 ML UNIT-DOSE CUP PO PRN (17:01)
[2022-02-07] MEDS: NICOTINE 14 MG/24 HOURS TOPICAL PATCH TD SCH (17:49)
[2022-02-07] MEDS: IBUPROFEN 400 MG TABLET (FP) PO PRN (17:50)
[2022-02-07] MEDS: hydrOXYzine PAMOATE 25 MG CAPSULE (FP) PO SCH ×2 (17:51→22:50)
[2022-02-07] MEDS: chlordiazePOXIDE HCL 25 MG CAPSULE PO SCH ×2 (17:51→22:50)
[2022-02-07] MEDS: PRENATAL VITAMINS W/ FOLIC ACID TABLET (FP) PO SCH (17:55)
[2022-02-07] MEDS: MELATONIN 5 MG TABLETS PO SCH (22:50)
[2022-02-07] MEDS: THIAMINE HCL 100 MG TABLET (FP) PO SCH (22:50)
[2022-02-07] MEDS: ACETAMINOPHEN 325 MG TABLET (FP) PO PRN (22:51)
[2022-02-08] MEDS: hydrOXYzine PAMOATE 25 MG CAPSULE (FP) PO SCH ×5 (05:55→22:46)
[2022-02-08] MEDS: chlordiazePOXIDE HCL 25 MG CAPSULE PO SCH ×4 (05:55→22:46)
[2022-02-08] MEDS: PRENATAL VITAMINS W/ FOLIC ACID TABLET (FP) PO SCH (11:03)
[2022-02-08] MEDS: NICOTINE 14 MG/24 HOURS TOPICAL PATCH TD SCH (11:03)
[2022-02-08 11:10] LABS: HEMATOCRIT 42.3 % (35.4-49); HEMOGLOBIN 14.1 GM/dL (11.7-16.9); MCH 29.7 pg (25.7-33.7); MCHC 33.3 g/dl (32.0-35.9); MEAN CELL VOLUME 89.3 fl (80-96); MEAN PLT VOLUME 6.9 fl (7.5-11.1); PLATELET COUNT 430 10^3/uL (134-434); RBC 4.74 M/mm3 (4.00-5.60); RDW 14.2 % (11.9-15.9); WHITE BLOOD COUNT 5.8 K/mm3 (4.0-10.0)
[2022-02-08 11:45] LABS: ALBUMIN 3.3 g/dl (3.4-5.0); BLOOD UREA NITROGEN 18.8 mg/dL (7-18); CALCIUM 9.2 mg/dL (8.5-10.1)
[2022-02-08 11:48] LABS: CREATININE 1.1 mg/dL (0.55-1.3)
[2022-02-08 11:50] LABS: BILIRUBIN,TOTAL 0.6 mg/dL (0.2-1); TOT PROT 6.4 g/dl (6.4-8.2)
[2022-02-08] MEDS: PANTOPRAZOLE 40 MG TABLET PO SCH (13:29)
[2022-02-08] MEDS: hydrALAZINE HCL 25 MG TABLET (FP) PO SCH (13:29)
[2022-02-08] MEDS ORDERED: QUEtiapine FUMARATE 100 MG TABLET (FP) PO SCH ×2 (22:00)
[2022-02-08] MEDS: MELATONIN 5 MG TABLETS PO SCH (22:46)
[2022-02-08] MEDS: QUEtiapine FUMARATE 50 MG TABLET PO SCH (22:47)
[2022-02-08] MEDS: THIAMINE HCL 100 MG TABLET (FP) PO SCH (22:47)
[2022-02-09] MEDS: hydrOXYzine PAMOATE 25 MG CAPSULE (FP) PO SCH ×5 (06:31→23:24)
[2022-02-09] MEDS: chlordiazePOXIDE HCL 25 MG CAPSULE PO SCH ×4 (06:31→22:47)
[2022-02-09] MEDS ORDERED: ESCITALOPRAM OXALATE 10 MG TABLET PO SCH (10:00)
[2022-02-09] MEDS: hydrALAZINE HCL 25 MG TABLET (FP) PO SCH (11:09)
[2022-02-09] MEDS: ESCITALOPRAM OXALATE 10 MG TABLET PO SCH (11:09)
[2022-02-09] MEDS: PRENATAL VITAMINS W/ FOLIC ACID TABLET (FP) PO SCH (11:09)
[2022-02-09] MEDS: NICOTINE 14 MG/24 HOURS TOPICAL PATCH TD SCH (11:09)
[2022-02-09] MEDS: PANTOPRAZOLE 40 MG TABLET PO SCH (11:09)
[2022-02-09] MEDS: MELATONIN 5 MG TABLETS PO SCH (22:19)
[2022-02-09] MEDS: QUEtiapine FUMARATE 50 MG TABLET PO SCH (22:19)
[2022-02-09] MEDS: THIAMINE HCL 100 MG TABLET (FP) PO SCH (22:19)
[2022-02-09] MEDS: IBUPROFEN 400 MG TABLET (FP) PO PRN (22:20)
[2022-02-10] MEDS ORDERED: chlordiazePOXIDE HCL 10 MG CAPSULE PO PRN
[2022-02-10] MEDS: chlordiazePOXIDE HCL 10 MG CAPSULE PO SCH ×4 (06:37→22:39)
[2022-02-10] MEDS: hydrOXYzine PAMOATE 25 MG CAPSULE (FP) PO SCH ×5 (06:37→22:39)
[2022-02-10] MEDS: PANTOPRAZOLE 40 MG TABLET PO SCH (11:01)
[2022-02-10] MEDS: PRENATAL VITAMINS W/ FOLIC ACID TABLET (FP) PO SCH (11:01)
[2022-02-10] MEDS: hydrALAZINE HCL 25 MG TABLET (FP) PO SCH (11:01)
[2022-02-10] MEDS: ESCITALOPRAM OXALATE 10 MG TABLET PO SCH (11:02)
[2022-02-10] MEDS: NICOTINE 14 MG/24 HOURS TOPICAL PATCH TD SCH (11:02)
[2022-02-10] MEDS: QUEtiapine FUMARATE 50 MG TABLET PO SCH (22:39)
[2022-02-10] MEDS: THIAMINE HCL 100 MG TABLET (FP) PO SCH (22:39)
[2022-02-10] MEDS: MELATONIN 5 MG TABLETS PO SCH (22:39)
[2022-02-11] MEDS: chlordiazePOXIDE HCL 10 MG CAPSULE PO SCH ×2 (07:08→18:03)
[2022-02-11] MEDS: hydrOXYzine PAMOATE 25 MG CAPSULE (FP) PO SCH ×5 (07:08→22:44)
[2022-02-11] MEDS: PRENATAL VITAMINS W/ FOLIC ACID TABLET (FP) PO SCH (10:40)
[2022-02-11] MEDS: PANTOPRAZOLE 40 MG TABLET PO SCH (10:41)
[2022-02-11] MEDS: hydrALAZINE HCL 25 MG TABLET (FP) PO SCH (10:41)
[2022-02-11] MEDS: ESCITALOPRAM OXALATE 10 MG TABLET PO SCH (10:41)
[2022-02-11] MEDS: NICOTINE 14 MG/24 HOURS TOPICAL PATCH TD SCH (10:42)
[2022-02-11] MEDS: QUEtiapine FUMARATE 50 MG TABLET PO SCH (22:44)
[2022-02-11] MEDS: MELATONIN 5 MG TABLETS PO SCH (22:44)
[2022-02-11] MEDS: THIAMINE HCL 100 MG TABLET (FP) PO SCH (22:45)
[2022-02-12] MEDS ORDERED: chlordiazePOXIDE HCL 10 MG CAPSULE PO ONE (05:00)
[2022-02-12] MEDS: hydrOXYzine PAMOATE 25 MG CAPSULE (FP) PO SCH ×2 (06:18→10:23)
[2022-02-12 07:14] VITALS: PULSE 62; RESP 18
[2022-02-12 08:58] VITALS: BP 124/52; TEMP 97.3
[2022-02-12] MEDS: ACETAMINOPHEN 325 MG TABLET (FP) PO PRN (09:18)
[2022-02-12] MEDS: NICOTINE 14 MG/24 HOURS TOPICAL PATCH TD SCH (10:23)
[2022-02-12] MEDS: PRENATAL VITAMINS W/ FOLIC ACID TABLET (FP) PO SCH (10:23)
[2022-02-12] MEDS: hydrALAZINE HCL 25 MG TABLET (FP) PO SCH (10:23)
[2022-02-12] MEDS: PANTOPRAZOLE 40 MG TABLET PO SCH (10:23)
[2022-02-12] MEDS: ESCITALOPRAM OXALATE 10 MG TABLET PO SCH (10:23)
== END 2022-02-12 10:27 | disposition home or self-care (01) | DRG 774 ==
LOC: SUATTDRO 13:28 → YASAS 13:28 → Y3N 16:40
PROVIDERS: ADMIT Allergy & Immunology; ATTEND Surgery
PROC: HZ2ZZZZ Detoxification Services for Substance Abuse Treatment (ICD-10-PCS; principal; 2022-02-07)
DX: F10.230 Alcohol dependence with withdrawal, uncomplicated (principal); F14.20 Cocaine dependence, uncomplicated; F17.210 Nicotine dependence, cigarettes, uncomplicated; F31.9 Bipolar disorder, unspecified; F19.24 Other psychoactive substance dependence with psychoactive substance-induced mood disorder; I10 Essential (primary) hypertension; K21.9 Gastro-esophageal reflux disease without esophagitis; M17.11 Unilateral primary osteoarthritis, right knee; E78.5 Hyperlipidemia, unspecified; M54.59 Other low back pain; G89.29 Other chronic pain; G47.00 Insomnia, unspecified; Z91.010 Allergy to peanuts; Z91.013 Allergy to seafood; Z91.018 Allergy to other foods; Z56.0 Unemployment, unspecified
CPT/HCPCS: 36415; 80053; 85027; 86780; C9803-CS; U0003; U0005

== ENCOUNTER 2022-04-15 11:48 | Inpatient (IN) | payer OTHER ==
[2022-04-15 12:25] VITALS: BMI 26.3
[2022-04-15] MEDS ORDERED: BISMUTH SUBSALICYLATE 524 MG/30 ML PO PRN (12:55)
[2022-04-15] MEDS ORDERED: MAGNESIUM HYDROX 2400MG/30ML ORAL SUSPENSION 30 ML CUP PO PRN (12:55)
[2022-04-15] MEDS ORDERED: MAGNESIUM CITRATE 300 ML BOTTLE PO PRN (12:55)
[2022-04-15] MEDS ORDERED: chlordiazePOXIDE HCL 25 MG CAPSULE PO PRN (12:55)
[2022-04-15] MEDS ORDERED: IBUPROFEN 400 MG TABLET (FP) PO PRN (12:55)
[2022-04-15] MEDS ORDERED: LOPERAMIDE HCL 2 MG CAPSULE PO PRN (12:55)
[2022-04-15] MEDS ORDERED: IBUPROFEN 600 MG TABLET (FP) PO PRN (12:55)
[2022-04-15] MEDS ORDERED: ACETAMINOPHEN 325 MG TABLET (FP) PO PRN ×2 (12:55)
[2022-04-15] MEDS ORDERED: MAG HYDROX/AL HYDROX/SIMETH 30 ML UNIT-DOSE CUP PO PRN (12:55)
[2022-04-15] MEDS ORDERED: ONDANSETRON *ODT* 4 MG TABLET SL PRN (12:55)
[2022-04-15] MEDS ORDERED: NALOXONE HCL (KLOXXADO) 8 MG SPRAY NS PRN (12:55)
[2022-04-15] MEDS ORDERED: BENZOCAINE/MENTHOL (CHLORASEPTIC ) LOZENGE MM PRN (12:55)
[2022-04-15] MEDS ORDERED: NICOTINE 10 MG CARTRIDGE (INHALER) IH PRN (12:55)
[2022-04-15] MEDS ORDERED: DICYCLOMINE HCL 10 MG CAPSULE PO PRN (12:55)
[2022-04-15] MEDS: hydrOXYzine PAMOATE 25 MG CAPSULE (FP) PO SCH ×3 (13:45→23:15)
[2022-04-15] MEDS: METHOCARBAMOL 500 MG TABLET PO PRN (13:45)
[2022-04-15] MEDS: NICOTINE 21 MG/24 HOURS TOPICAL PATCH TD SCH (13:46)
[2022-04-15] MEDS: chlordiazePOXIDE HCL 25 MG CAPSULE PO SCH ×2 (17:56→23:13)
[2022-04-15] MEDS: THIAMINE HCL 100 MG TABLET (FP) PO SCH (23:12)
[2022-04-15] MEDS: MELATONIN 5 MG TABLETS PO SCH (23:15)
[2022-04-16] MEDS: hydrOXYzine PAMOATE 25 MG CAPSULE (FP) PO SCH ×3 (06:41→14:11)
[2022-04-16] MEDS: chlordiazePOXIDE HCL 25 MG CAPSULE PO SCH ×4 (06:41→22:33)
[2022-04-16] MEDS: METHOCARBAMOL 500 MG TABLET PO PRN (06:45)
[2022-04-16] MEDS: PANTOPRAZOLE 40 MG TABLET PO SCH (10:18)
[2022-04-16] MEDS: PRENATAL VITAMINS W/ FOLIC ACID TABLET (FP) PO SCH (10:18)
[2022-04-16] MEDS: NICOTINE 21 MG/24 HOURS TOPICAL PATCH TD SCH (10:21)
[2022-04-16 10:45] LABS: ALBUMIN 3.1 g/dl (3.4-5.0); BLOOD UREA NITROGEN 14.7 mg/dL (7-18); CALCIUM 8.9 mg/dL (8.5-10.1)
[2022-04-16 10:49] LABS: BILIRUBIN,TOTAL 0.5 mg/dL (0.2-1); TOT PROT 6.1 g/dl (6.4-8.2)
[2022-04-16 10:52] LABS: HEMATOCRIT 41.8 % (35.4-49); HEMOGLOBIN 13.6 GM/dL (11.7-16.9); MCH 29.6 pg (25.7-33.7); MCHC 32.5 g/dl (32.0-35.9); MEAN PLT VOLUME 7.5 fl (7.5-11.1); PLATELET COUNT 486 10^3/uL (134-434); RBC 4.59 M/mm3 (4.00-5.60); RDW 14.6 % (11.9-15.9); WHITE BLOOD COUNT 4.6 K/mm3 (4.0-10.0)
[2022-04-16] MEDS: ARIPiprazole 10 MG TABLET PO SCH (11:35)
[2022-04-16] MEDS: CITALOPRAM HYDROBROMIDE 20 MG TABLET PO SCH (11:35)
[2022-04-16] MEDS: hydrOXYzine PAMOATE 25 MG CAPSULE (FP) PO PRN (17:58)
[2022-04-16] MEDS: QUEtiapine FUMARATE 25 MG TABLET PO SCH (22:33)
[2022-04-16] MEDS: MELATONIN 5 MG TABLETS PO SCH (22:33)
[2022-04-16] MEDS: THIAMINE HCL 100 MG TABLET (FP) PO SCH (22:33)
[2022-04-17] MEDS: chlordiazePOXIDE HCL 25 MG CAPSULE PO SCH ×4 (06:08→22:23)
[2022-04-17] MEDS: CITALOPRAM HYDROBROMIDE 20 MG TABLET PO SCH (10:19)
[2022-04-17] MEDS: NICOTINE 21 MG/24 HOURS TOPICAL PATCH TD SCH (10:19)
[2022-04-17] MEDS: ARIPiprazole 10 MG TABLET PO SCH (10:19)
[2022-04-17] MEDS: PANTOPRAZOLE 40 MG TABLET PO SCH (10:19)
[2022-04-17] MEDS: PRENATAL VITAMINS W/ FOLIC ACID TABLET (FP) PO SCH (10:19)
[2022-04-17] MEDS: METHOCARBAMOL 500 MG TABLET PO PRN (10:19)
[2022-04-17] MEDS: hydrOXYzine PAMOATE 25 MG CAPSULE (FP) PO PRN (10:20)
[2022-04-17] MEDS: QUEtiapine FUMARATE 25 MG TABLET PO SCH (22:23)
[2022-04-17] MEDS: MELATONIN 5 MG TABLETS PO SCH (22:23)
[2022-04-17] MEDS: THIAMINE HCL 100 MG TABLET (FP) PO SCH (22:23)
[2022-04-18] MEDS ORDERED: chlordiazePOXIDE HCL 10 MG CAPSULE PO PRN
[2022-04-18] MEDS: chlordiazePOXIDE HCL 10 MG CAPSULE PO SCH ×4 (06:35→22:01)
[2022-04-18] MEDS: NICOTINE 21 MG/24 HOURS TOPICAL PATCH TD SCH (10:14)
[2022-04-18] MEDS: PRENATAL VITAMINS W/ FOLIC ACID TABLET (FP) PO SCH (10:14)
[2022-04-18] MEDS: CITALOPRAM HYDROBROMIDE 20 MG TABLET PO SCH (10:14)
[2022-04-18] MEDS: ARIPiprazole 10 MG TABLET PO SCH (10:14)
[2022-04-18] MEDS: PANTOPRAZOLE 40 MG TABLET PO SCH (10:14)
[2022-04-18] MEDS: QUEtiapine FUMARATE 25 MG TABLET PO SCH (22:01)
[2022-04-18] MEDS: THIAMINE HCL 100 MG TABLET (FP) PO SCH (22:01)
[2022-04-18] MEDS: MELATONIN 5 MG TABLETS PO SCH (22:01)
[2022-04-19] MEDS: chlordiazePOXIDE HCL 10 MG CAPSULE PO SCH ×2 (05:28→18:02)
[2022-04-19] MEDS: PRENATAL VITAMINS W/ FOLIC ACID TABLET (FP) PO SCH (10:06)
[2022-04-19] MEDS: NICOTINE 21 MG/24 HOURS TOPICAL PATCH TD SCH (10:06)
[2022-04-19] MEDS: PANTOPRAZOLE 40 MG TABLET PO SCH (10:07)
[2022-04-19] MEDS: CITALOPRAM HYDROBROMIDE 20 MG TABLET PO SCH (10:07)
[2022-04-19] MEDS: ARIPiprazole 10 MG TABLET PO SCH (10:07)
[2022-04-19] MEDS: METHOCARBAMOL 500 MG TABLET PO PRN (10:08)
[2022-04-19 13:10] VITALS: PULSE 68
[2022-04-19 17:19] VITALS: BP 113/73; RESP 17; TEMP 97.3
[2022-04-20] MEDS ORDERED: chlordiazePOXIDE HCL 10 MG CAPSULE PO ONE (05:00)
== END 2022-04-19 19:03 | disposition left against medical advice (07) | DRG 770 ==
LOC: YASAS 11:48 → SUATTDRO 11:48 → Y6N 13:21
PROVIDERS: ADMIT Allergy & Immunology; ATTEND Allergy & Immunology
PROC: HZ2ZZZZ Detoxification Services for Substance Abuse Treatment (ICD-10-PCS; principal; 2022-04-15)
DX: F10.230 Alcohol dependence with withdrawal, uncomplicated (principal); F14.10 Cocaine abuse, uncomplicated; F17.210 Nicotine dependence, cigarettes, uncomplicated; F31.9 Bipolar disorder, unspecified; F19.282 Other psychoactive substance dependence with psychoactive substance-induced sleep disorder; F19.24 Other psychoactive substance dependence with psychoactive substance-induced mood disorder; I10 Essential (primary) hypertension; M17.11 Unilateral primary osteoarthritis, right knee; M54.50 Low back pain, unspecified; G89.29 Other chronic pain; K21.9 Gastro-esophageal reflux disease without esophagitis; Z56.0 Unemployment, unspecified
CPT/HCPCS: 36415; 80053; 85027; 86780; C9803-CS; U0003; U0005

== ENCOUNTER 2022-08-27 12:56 | Inpatient (IN) | payer OTHER ==
[2022-08-27 13:24] VITALS: BMI 27.8
[2022-08-27] MEDS ORDERED: NALOXONE HCL (KLOXXADO) 8 MG SPRAY NS PRN (14:13)
[2022-08-27] MEDS ORDERED: MAG HYDROX/AL HYDROX/SIMETH 30 ML UNIT-DOSE CUP PO PRN (14:13)
[2022-08-27] MEDS ORDERED: BACLOFEN 10 MG TABLET (FP) PO PRN (14:13)
[2022-08-27] MEDS ORDERED: MAGNESIUM HYDROX 2400MG/30ML ORAL SUSPENSION 30 ML CUP PO PRN (14:13)
[2022-08-27] MEDS ORDERED: BENZOCAINE/MENTHOL (CHLORASEPTIC ) LOZENGE MM PRN (14:13)
[2022-08-27] MEDS ORDERED: POLYETHYLENE GLYCOL (HEALTHYLAX) 3350 17 GM PACKET PO PRN (14:13)
[2022-08-27] MEDS ORDERED: DICYCLOMINE HCL 10 MG CAPSULE PO PRN (14:13)
[2022-08-27] MEDS ORDERED: IBUPROFEN 600 MG TABLET (FP) PO PRN (14:13)
[2022-08-27] MEDS ORDERED: ONDANSETRON *ODT* 4 MG TABLET SL PRN (14:13)
[2022-08-27] MEDS ORDERED: IBUPROFEN 400 MG TABLET (FP) PO PRN (14:13)
[2022-08-27] MEDS ORDERED: NICOTINE 10 MG CARTRIDGE (INHALER) IH PRN (14:13)
[2022-08-27] MEDS ORDERED: ACETAMINOPHEN 325 MG TABLET (FP) PO PRN ×2 (14:13)
[2022-08-27] MEDS ORDERED: hydrOXYzine PAMOATE 25 MG CAPSULE (FP) PO PRN (14:13)
[2022-08-27] MEDS ORDERED: chlordiazePOXIDE HCL 25 MG CAPSULE PO PRN (14:13)
[2022-08-27] MEDS ORDERED: BISMUTH SUBSALICYLATE 524 MG/30 ML PO PRN (14:13)
[2022-08-27] MEDS ORDERED: LOPERAMIDE HCL 2 MG CAPSULE PO PRN (14:13)
[2022-08-27] MEDS: chlordiazePOXIDE HCL 25 MG CAPSULE PO SCH ×3 (17:41→22:26)
[2022-08-27] MEDS: PRENATAL VITAMINS W/ FOLIC ACID TABLET (FP) PO SCH (17:48)
[2022-08-27] MEDS: NICOTINE 14 MG/24 HOURS TOPICAL PATCH TD SCH (17:48)
[2022-08-27] MEDS: THIAMINE HCL 100 MG TABLET (FP) PO SCH (22:26)
[2022-08-27] MEDS: MELATONIN 5 MG TABLETS PO SCH (22:26)
[2022-08-28] MEDS: chlordiazePOXIDE HCL 25 MG CAPSULE PO SCH ×4 (05:57→22:31)
[2022-08-28] MEDS: PRENATAL VITAMINS W/ FOLIC ACID TABLET (FP) PO SCH (10:23)
[2022-08-28] MEDS: NICOTINE 14 MG/24 HOURS TOPICAL PATCH TD SCH (10:23)
[2022-08-28] MEDS: amLODIPine BESYLATE 5 MG TABLET (FP) PO SCH (10:24)
[2022-08-28 12:06] LABS: HEMOGLOBIN 13.1 GM/dL (11.7-16.9); MCH 30.3 pg (25.7-33.7); MCHC 33.5 g/dl (32.0-35.9); MEAN CELL VOLUME 90.4 fl (80-96); MEAN PLT VOLUME 7.1 fl (7.5-11.1); PLATELET COUNT 390 10^3/uL (134-434); RBC 4.32 M/mm3 (4.00-5.60); RDW 13.7 % (11.9-15.9); WHITE BLOOD COUNT 3.8 K/mm3 (4.0-10.0)
[2022-08-28 12:20] LABS: ALBUMIN 3.2 g/dl (3.4-5.0); CALCIUM 9.1 mg/dL (8.5-10.1)
[2022-08-28 12:24] LABS: CREATININE 1.2 mg/dL (0.55-1.3)
[2022-08-28 12:25] LABS: BILIRUBIN,TOTAL 0.3 mg/dL (0.2-1); TOT PROT 6.2 g/dl (6.4-8.2)
[2022-08-28] MEDS: ARIPiprazole 10 MG TABLET PO SCH (14:06)
[2022-08-28] MEDS: ESCITALOPRAM OXALATE 10 MG TABLET PO SCH (14:06)
[2022-08-28] MEDS: THIAMINE HCL 100 MG TABLET (FP) PO SCH (22:31)
[2022-08-28] MEDS: QUEtiapine FUMARATE 25 MG TABLET PO SCH (22:31)
[2022-08-28] MEDS: MELATONIN 5 MG TABLETS PO SCH (22:41)
[2022-08-29] MEDS: chlordiazePOXIDE HCL 25 MG CAPSULE PO SCH ×4 (05:23→22:12)
[2022-08-29] MEDS: NICOTINE 14 MG/24 HOURS TOPICAL PATCH TD SCH (10:11)
[2022-08-29] MEDS: ESCITALOPRAM OXALATE 10 MG TABLET PO SCH (10:11)
[2022-08-29] MEDS: ARIPiprazole 10 MG TABLET PO SCH (10:11)
[2022-08-29] MEDS: PRENATAL VITAMINS W/ FOLIC ACID TABLET (FP) PO SCH (10:11)
[2022-08-29] MEDS: amLODIPine BESYLATE 5 MG TABLET (FP) PO SCH (10:11)
[2022-08-29] MEDS: THIAMINE HCL 100 MG TABLET (FP) PO SCH (22:12)
[2022-08-29] MEDS: MELATONIN 5 MG TABLETS PO SCH (22:12)
[2022-08-29] MEDS: QUEtiapine FUMARATE 25 MG TABLET PO SCH (22:12)
[2022-08-30] MEDS ORDERED: chlordiazePOXIDE HCL 10 MG CAPSULE PO PRN
[2022-08-30] MEDS: chlordiazePOXIDE HCL 10 MG CAPSULE PO SCH ×2 (05:48→10:18)
[2022-08-30 05:53] VITALS: RESP 18
[2022-08-30 09:15] VITALS: BP 133/65; PULSE 95; TEMP 97.3
[2022-08-30] MEDS: ESCITALOPRAM OXALATE 10 MG TABLET PO SCH (10:18)
[2022-08-30] MEDS: PRENATAL VITAMINS W/ FOLIC ACID TABLET (FP) PO SCH (10:18)
[2022-08-30] MEDS: NICOTINE 14 MG/24 HOURS TOPICAL PATCH TD SCH (10:18)
[2022-08-30] MEDS: amLODIPine BESYLATE 5 MG TABLET (FP) PO SCH (10:18)
[2022-08-30] MEDS: ARIPiprazole 10 MG TABLET PO SCH (10:18)
[2022-08-31] MEDS ORDERED: chlordiazePOXIDE HCL 10 MG CAPSULE PO SCH (05:00)
[2022-09-01] MEDS ORDERED: chlordiazePOXIDE HCL 10 MG CAPSULE PO ONE (05:00)
== END 2022-08-30 08:44 | disposition left against medical advice (07) | DRG 770 ==
LOC: YASAS 12:56 → Y6N 14:57
PROVIDERS: ADMIT Allergy & Immunology; ATTEND Surgery
PROC: HZ2ZZZZ Detoxification Services for Substance Abuse Treatment (ICD-10-PCS; principal; 2022-08-27)
DX: F10.230 Alcohol dependence with withdrawal, uncomplicated (principal); F14.20 Cocaine dependence, uncomplicated; F12.20 Cannabis dependence, uncomplicated; F17.210 Nicotine dependence, cigarettes, uncomplicated; F19.282 Other psychoactive substance dependence with psychoactive substance-induced sleep disorder; F19.24 Other psychoactive substance dependence with psychoactive substance-induced mood disorder; F31.9 Bipolar disorder, unspecified; G47.00 Insomnia, unspecified; I10 Essential (primary) hypertension; K21.9 Gastro-esophageal reflux disease without esophagitis; M54.50 Low back pain, unspecified; G89.29 Other chronic pain; M17.11 Unilateral primary osteoarthritis, right knee
CPT/HCPCS: 36415; 80053; 82140; 83036; 85027; 86780; 87811; C9803-CS; U0003; U0005

== ENCOUNTER 2023-01-09 13:14 | Inpatient (IN) | payer OTHER ==
[2023-01-09 14:19] VITALS: BMI 23.7
[2023-01-09] MEDS ORDERED: NICOTINE POLACRILEX 2 MG GUM BUC PRN (14:42)
[2023-01-09] MEDS ORDERED: hydrOXYzine PAMOATE 25 MG CAPSULE (FP) PO PRN (14:42)
[2023-01-09] MEDS ORDERED: ONDANSETRON *ODT* 4 MG TABLET SL PRN (14:42)
[2023-01-09] MEDS ORDERED: BENZOCAINE/MENTHOL (CHLORASEPTIC ) LOZENGE MM PRN (14:42)
[2023-01-09] MEDS ORDERED: MAG HYDROX/AL HYDROX/SIMETH 30 ML UNIT-DOSE CUP PO PRN (14:42)
[2023-01-09] MEDS ORDERED: guaiFENesin 600 MG TABLET.ER (FP) PO PRN (14:42)
[2023-01-09] MEDS ORDERED: LOPERAMIDE HCL 2 MG CAPSULE PO PRN (14:42)
[2023-01-09] MEDS ORDERED: IBUPROFEN 400 MG TABLET (FP) PO PRN (14:42)
[2023-01-09] MEDS ORDERED: P-EPHED 60MG/TRIPROLIDI 2.5MG TABLET PO PRN (14:42)
[2023-01-09] MEDS ORDERED: MAGNESIUM HYDROX 2400MG/30ML ORAL SUSPENSION 30 ML CUP PO PRN (14:42)
[2023-01-09] MEDS ORDERED: BENZONATATE 200 MG CAPSULE PO PRN (14:42)
[2023-01-09] MEDS ORDERED: POLYETHYLENE GLYCOL (HEALTHYLAX) 3350 17 GM PACKET PO PRN (14:42)
[2023-01-09] MEDS ORDERED: DICYCLOMINE HCL 10 MG CAPSULE PO PRN (14:42)
[2023-01-09] MEDS ORDERED: METHOCARBAMOL 500 MG TABLET PO PRN (14:42)
[2023-01-09] MEDS ORDERED: IBUPROFEN 600 MG TABLET (FP) PO PRN (14:42)
[2023-01-09] MEDS ORDERED: BISMUTH SUBSALICYLATE 262 MG/15 ML BTL PO PRN (14:42)
[2023-01-09] MEDS ORDERED: ACETAMINOPHEN 325 MG TABLET (FP) ONE (16:56)
[2023-01-09] MEDS: ACETAMINOPHEN 325 MG TABLET (FP) PO PRN (17:04)
[2023-01-09] MEDS: MELATONIN 5 MG TABLETS PO SCH (22:35)
[2023-01-09] MEDS: THIAMINE HCL 100 MG TABLET (FP) PO SCH (22:35)
[2023-01-09] MEDS: QUEtiapine FUMARATE 100 MG TABLET (FP) PO SCH (22:36)
[2023-01-10] MEDS ORDERED: ESCITALOPRAM OXALATE 10 MG TABLET PO SCH (10:00)
[2023-01-10] MEDS ORDERED: diazePAM 5 MG TABLET PO PRN (10:28)
[2023-01-10] MEDS: ESCITALOPRAM OXALATE 10 MG TABLET PO SCH (10:35)
[2023-01-10] MEDS: ARIPiprazole 5 MG TABLET PO SCH (10:35)
[2023-01-10] MEDS: PRENATAL VITAMINS W/ FOLIC ACID TABLET (FP) PO SCH (10:35)
[2023-01-10] MEDS: diazePAM 5 MG TABLET PO SCH ×3 (10:58→22:22)
[2023-01-10 12:32] LABS: HEMATOCRIT 43.7 % (35.4-49); HEMOGLOBIN 14.2 GM/dL (11.7-16.9); MCH 28.8 pg (25.7-33.7); MCHC 32.6 g/dl (32.0-35.9); MEAN CELL VOLUME 88.4 fl (80-96); MEAN PLT VOLUME 7.4 fl (7.5-11.1); PLATELET COUNT 428 10^3/uL (134-434); RBC 4.94 M/mm3 (4.00-5.60); RDW 14.6 % (11.9-15.9); WHITE BLOOD COUNT 6.5 K/mm3 (4.0-10.0)
[2023-01-10 12:43] LABS: CHLORIDE 109 mmol/L (98-107); SODIUM 145 mmol/L (136-145)
[2023-01-10 12:48] LABS: CALCIUM 9.1 mg/dL (8.5-10.1)
[2023-01-10 12:49] LABS: ALBUMIN 3.2 g/dl (3.4-5.0); ANION GAP 10 MMOL/L (8-16); BLOOD UREA NITROGEN 17.6 mg/dL (7-18); CO2 27 mmol/L (21-32); GLUCOSE,RANDOM 173 mg/dL (74-106)
[2023-01-10 12:50] LABS: CREATININE 1.1 mg/dL (0.55-1.3); SGOT/AST 11 U/L (15-37)
[2023-01-10 12:51] LABS: SGPT/ALT 18 U/L (13-61)
[2023-01-10 12:52] LABS: BILIRUBIN,TOTAL < 0.1 mg/dL (0.2-1); TOT PROT 6.1 g/dl (6.4-8.2)
[2023-01-10 12:53] LABS: ALK PHOS 56 U/L (45-117)
[2023-01-10] MEDS: THIAMINE HCL 100 MG TABLET (FP) PO SCH (22:22)
[2023-01-10] MEDS: MELATONIN 5 MG TABLETS PO SCH (22:22)
[2023-01-10] MEDS: QUEtiapine FUMARATE 100 MG TABLET (FP) PO SCH (22:22)
[2023-01-11] MEDS: diazePAM 5 MG TABLET PO SCH ×4 (05:24→22:43)
[2023-01-11] MEDS: ESCITALOPRAM OXALATE 10 MG TABLET PO SCH (10:27)
[2023-01-11] MEDS: ARIPiprazole 5 MG TABLET PO SCH (10:27)
[2023-01-11] MEDS: PRENATAL VITAMINS W/ FOLIC ACID TABLET (FP) PO SCH (10:27)
[2023-01-11] MEDS: THIAMINE HCL 100 MG TABLET (FP) PO SCH (22:43)
[2023-01-11] MEDS: MELATONIN 5 MG TABLETS PO SCH (22:43)
[2023-01-11] MEDS: QUEtiapine FUMARATE 100 MG TABLET (FP) PO SCH (22:43)
[2023-01-12] MEDS: diazePAM 5 MG TABLET PO SCH ×3 (05:42→22:20)
[2023-01-12] MEDS: PRENATAL VITAMINS W/ FOLIC ACID TABLET (FP) PO SCH (10:09)
[2023-01-12] MEDS: ESCITALOPRAM OXALATE 10 MG TABLET PO SCH (10:09)
[2023-01-12] MEDS: ARIPiprazole 5 MG TABLET PO SCH (10:09)
[2023-01-12] MEDS: QUEtiapine FUMARATE 100 MG TABLET (FP) PO SCH (22:21)
[2023-01-12] MEDS: THIAMINE HCL 100 MG TABLET (FP) PO SCH (22:21)
[2023-01-12] MEDS: MELATONIN 5 MG TABLETS PO SCH (22:21)
[2023-01-13] MEDS: diazePAM 5 MG TABLET PO SCH ×2 (05:27→18:36)
[2023-01-13] MEDS: PRENATAL VITAMINS W/ FOLIC ACID TABLET (FP) PO SCH (10:26)
[2023-01-13] MEDS: ARIPiprazole 5 MG TABLET PO SCH (10:27)
[2023-01-13] MEDS: ESCITALOPRAM OXALATE 10 MG TABLET PO SCH (10:27)
[2023-01-13] MEDS: ACETAMINOPHEN 325 MG TABLET (FP) PO PRN (21:56)
[2023-01-13] MEDS: MELATONIN 5 MG TABLETS PO SCH (21:57)
[2023-01-13] MEDS: QUEtiapine FUMARATE 100 MG TABLET (FP) PO SCH (21:57)
[2023-01-13] MEDS: THIAMINE HCL 100 MG TABLET (FP) PO SCH (21:57)
[2023-01-14] MEDS ORDERED: diazePAM 5 MG TABLET PO ONE (06:00)
[2023-01-14 09:54] VITALS: BP 125/70; PULSE 82; RESP 20; TEMP 98.7
== END 2023-01-14 10:07 | disposition other institution (70) | DRG 774 ==
LOC: EDBD → YASAS 13:14 → Y3E 14:26 → Y3N 14:35
PROVIDERS: ADMIT Allergy & Immunology; ATTEND Surgery
PROC: HZ2ZZZZ Detoxification Services for Substance Abuse Treatment (ICD-10-PCS; principal; 2023-01-09)
DX: F10.230 Alcohol dependence with withdrawal, uncomplicated (principal); F13.230 Sedative, hypnotic or anxiolytic dependence with withdrawal, uncomplicated; F14.20 Cocaine dependence, uncomplicated; F12.20 Cannabis dependence, uncomplicated; F17.210 Nicotine dependence, cigarettes, uncomplicated; F31.9 Bipolar disorder, unspecified; F19.24 Other psychoactive substance dependence with psychoactive substance-induced mood disorder; G47.00 Insomnia, unspecified; I10 Essential (primary) hypertension; K21.9 Gastro-esophageal reflux disease without esophagitis; M17.11 Unilateral primary osteoarthritis, right knee; M54.50 Low back pain, unspecified; G89.29 Other chronic pain
CPT/HCPCS: 36415; 80053; 83036; 85027; 86780; 87635

== ENCOUNTER 2023-08-19 09:50 | Inpatient (IN) | payer OTHER ==
[2023-08-19 10:21] VITALS: BMI 25.7
[2023-08-19] MEDS ORDERED: NALOXONE HCL 0.4 MG/ML VIAL IM PRN (11:25)
[2023-08-19] MEDS ORDERED: IBUPROFEN 400 MG TABLET (FP) PO PRN (11:25)
[2023-08-19] MEDS ORDERED: hydrOXYzine PAMOATE 25 MG CAPSULE (FP) PO PRN (11:25)
[2023-08-19] MEDS ORDERED: NALOXONE HCL (KLOXXADO) 8 MG SPRAY NS PRN (11:25)
[2023-08-19] MEDS ORDERED: MAG HYDROX/AL HYDROX/SIMETH 30 ML UNIT-DOSE CUP PO PRN (11:25)
[2023-08-19] MEDS ORDERED: NICOTINE POLACRILEX 2 MG GUM BUC PRN (11:25)
[2023-08-19] MEDS ORDERED: guaiFENesin 600 MG TABLET.ER (FP) PO PRN (11:25)
[2023-08-19] MEDS ORDERED: POLYETHYLENE GLYCOL (HEALTHYLAX) 3350 17 GM PACKET PO PRN (11:25)
[2023-08-19] MEDS ORDERED: MAGNESIUM HYDROX 2400MG/30ML ORAL SUSPENSION 30 ML CUP PO PRN (11:25)
[2023-08-19] MEDS ORDERED: BENZONATATE 200 MG CAPSULE PO PRN (11:25)
[2023-08-19] MEDS ORDERED: BENZOCAINE/MENTHOL (CHLORASEPTIC ) LOZENGE MM PRN (11:25)
[2023-08-19] MEDS ORDERED: LOPERAMIDE HCL 2 MG CAPSULE PO PRN (11:25)
[2023-08-19] MEDS: IBUPROFEN 600 MG TABLET (FP) PO PRN (16:43)
[2023-08-19] MEDS: TUBERCULIN PPD 5 TU/0.1ML SYRINGE (IN PATIENT USE ONLY) ID ONE (16:45)
[2023-08-19] MEDS ORDERED: TUBERCULIN PPD 5 TU/0.1ML VIAL ID ONE (16:47)
[2023-08-19] MEDS: MELATONIN 5 MG TABLETS PO SCH (22:35)
[2023-08-19] MEDS: QUEtiapine FUMARATE 100 MG TABLET (FP) PO SCH (22:35)
[2023-08-19] MEDS: THIAMINE HCL 100 MG TABLET (FP) PO SCH (22:35)
[2023-08-20] MEDS: PRENATAL VITAMINS W/ FOLIC ACID TABLET (FP) PO SCH (09:50)
[2023-08-20] MEDS: ESCITALOPRAM OXALATE 10 MG TABLET PO SCH (09:51)
[2023-08-20] MEDS: ARIPiprazole 5 MG TABLET PO SCH (09:51)
[2023-08-20] MEDS: NICOTINE 14 MG/24 HOURS TOPICAL PATCH TD SCH (09:53)
[2023-08-20 11:34] LABS: HEMATOCRIT 44.2 % (35.4-49); HEMOGLOBIN 14.8 GM/dL (11.7-16.9); MCH 30.3 pg (25.7-33.7); MCHC 33.4 g/dl (32.0-35.9); MEAN CELL VOLUME 90.6 fl (80-96); MEAN PLT VOLUME 7.6 fl (7.5-11.1); PLATELET COUNT 447 10^3/uL (134-434); RBC 4.88 M/mm3 (4.00-5.60); RDW 14.3 % (11.9-15.9); WHITE BLOOD COUNT 3.9 K/mm3 (4.0-10.0)
[2023-08-20 11:39] LABS: POTASSIUM 4.1 mmol/L (3.5-5.1)
[2023-08-20 11:39] LABS: URINE APPEARANCE CLEAR; URINE BILIRUBIN NEGATIVE (NEGATIVE); URINE COLOR YELLOW; URINE GLUCOSE (UA) TRACE (NEGATIVE); URINE KETONE NEGATIVE (NEGATIVE); URINE LEUK ESTERASE NEGATIVE (NEGATIVE); URINE NITRITE NEGATIVE (NEGATIVE); URINE PROTEIN TRACE (NEGATIVE)
[2023-08-20 11:47] LABS: ALBUMIN 3.6 g/dl (3.4-5.0); BLOOD UREA NITROGEN 17.7 mg/dL (7-18); CALCIUM 9.8 mg/dL (8.5-10.1)
[2023-08-20 11:50] LABS: CREATININE 1.2 mg/dL (0.55-1.3)
[2023-08-20 11:52] LABS: BILIRUBIN,TOTAL 0.3 mg/dL (0.2-1); TOT PROT 7.3 g/dl (6.4-8.2)
[2023-08-20] MEDS: ACETAMINOPHEN 325 MG TABLET (FP) PO PRN (21:38)
[2023-08-22] MEDS: amLODIPine BESYLATE 5 MG TABLET (FP) PO SCH (10:28)
[2023-08-27 07:21] VITALS: TEMP 97.5
[2023-08-27 08:52] VITALS: BP 131/80; PULSE 87; RESP 18
== END 2023-08-27 10:08 | disposition home or self-care (01) | DRG 772 ==
LOC: YASAS 09:50 → Y3N 15:17 → Y3NR 15:24 → Y3W 16:04
PROVIDERS: ADMIT Allergy & Immunology; ATTEND Psychiatry & Neurology Pain Medicine
PROC: HZ42ZZZ Group Counseling for Substance Abuse Treatment, Cognitive-Behavioral (ICD-10-PCS; principal; 2023-08-18)
DX: F10.20 Alcohol dependence, uncomplicated (principal); F14.20 Cocaine dependence, uncomplicated; F17.210 Nicotine dependence, cigarettes, uncomplicated; F31.9 Bipolar disorder, unspecified; F19.282 Other psychoactive substance dependence with psychoactive substance-induced sleep disorder; F19.24 Other psychoactive substance dependence with psychoactive substance-induced mood disorder; F41.9 Anxiety disorder, unspecified; G47.00 Insomnia, unspecified; I10 Essential (primary) hypertension; K21.9 Gastro-esophageal reflux disease without esophagitis; M17.11 Unilateral primary osteoarthritis, right knee
CPT/HCPCS: 36415; 80053; 80307; 81003; 85027; 86780; 87635; 87811; 93005; 93010

== ENCOUNTER 2024-10-07 18:29 | Inpatient (IN) | payer OTHER ==
[2024-10-07 19:21] VITALS: BMI 28.1
[2024-10-07] MEDS ORDERED: diazePAM 5 MG TABLET PO PRN (19:39)
[2024-10-07] MEDS ORDERED: POLYETHYLENE GLYCOL (HEALTHYLAX) 3350 17 GM PACKET PO PRN (19:43)
[2024-10-07] MEDS ORDERED: P-EPHED 60MG/TRIPROLIDI 2.5MG TABLET PO PRN (19:43)
[2024-10-07] MEDS ORDERED: BENZOCAINE/MENTHOL (CHLORASEPTIC ) LOZENGE MM PRN (19:43)
[2024-10-07] MEDS ORDERED: BENZONATATE 200 MG CAPSULE PO PRN (19:43)
[2024-10-07] MEDS ORDERED: IBUPROFEN 600 MG TABLET (FP) PO PRN (19:43)
[2024-10-07] MEDS ORDERED: DICYCLOMINE HCL 10 MG CAPSULE PO PRN (19:43)
[2024-10-07] MEDS ORDERED: guaiFENesin 600 MG TABLET.ER (FP) PO PRN (19:43)
[2024-10-07] MEDS ORDERED: ACETAMINOPHEN 325 MG TABLET (FP) PO PRN (19:43)
[2024-10-07] MEDS ORDERED: IBUPROFEN 400 MG TABLET (FP) PO PRN (19:43)
[2024-10-07] MEDS ORDERED: LOPERAMIDE HCL 2 MG CAPSULE PO PRN (19:43)
[2024-10-07] MEDS ORDERED: NICOTINE POLACRILEX 2 MG GUM BUC PRN (19:43)
[2024-10-07] MEDS ORDERED: ONDANSETRON *ODT* 4 MG TABLET SL PRN (19:43)
[2024-10-07] MEDS ORDERED: MAGNESIUM HYDROX 2400MG/30ML ORAL SUSPENSION 30 ML CUP PO PRN (19:43)
[2024-10-07] MEDS ORDERED: NICOTINE POLACRILEX 2 MG LOZENGE BC PRN (19:43)
[2024-10-07] MEDS ORDERED: NALOXONE (NARCAN) HCL 4 MG/0.1 ML SPRAY NS PRN (19:43)
[2024-10-07] MEDS ORDERED: BISMUTH SUBSALICYLATE 524 MG/30 ML PO PRN (19:43)
[2024-10-07] MEDS ORDERED: chlordiazePOXIDE HCL 25 MG CAPSULE PO PRN (19:44)
[2024-10-07] MEDS ORDERED: MAG HYDROX/AL HYDROX/SIMETH 30 ML UNIT-DOSE CUP ONE (22:19)
[2024-10-07] MEDS ORDERED: cloNIDine HCL 0.1 MG TABLET ONE (22:19)
[2024-10-07] MEDS ORDERED: chlordiazePOXIDE HCL 25 MG CAPSULE ONE (22:19)
[2024-10-07] MEDS: cloNIDine HCL 0.1 MG TABLET PO PRN (22:22)
[2024-10-07] MEDS: MAG HYDROX/AL HYDROX/SIMETH 30 ML UNIT-DOSE CUP PO PRN (22:22)
[2024-10-07] MEDS: chlordiazePOXIDE HCL 25 MG CAPSULE PO SCH (22:22)
[2024-10-07] MEDS: methaDONE HCL 10 MG TABLET (FOR DETOX USE ONLY) PO ONE (22:23)
[2024-10-07] MEDS: MELATONIN 5 MG TABLETS PO SCH (23:02)
[2024-10-07] MEDS: THIAMINE 100 MG TABLET PO SCH (23:02)
[2024-10-08] MEDS: PRENATAL VITAMINS W/ FOLIC ACID TABLET (FP) PO SCH (10:33)
[2024-10-08 11:14] LABS: HEMATOCRIT 37.3 % (40.1-51.0); HEMOGLOBIN 11.7 g/dL (13.7-17.5); MCHC 31.4 g/dl (32.3-36.5); MEAN CELL VOLUME 91.9 fl (79.0-92.2); MEAN PLT VOLUME 9.6 fl (9.4-12.4); PLATELET COUNT 407 x10^3/uL (163-337); RDW 13.9 % (12.2-16.1)
[2024-10-08 11:19] LABS: CHLORIDE 105 mmol/L (98-107); POTASSIUM 3.9 mmol/L (3.5-5.1); SODIUM 139 mmol/L (136-145)
[2024-10-08 11:39] LABS: CALCIUM 8.9 mg/dL (8.5-10.1)
[2024-10-08 11:40] LABS: ALBUMIN 3.1 g/dl (3.4-5.0); ANION GAP 8 mmol/L (4-13); CO2 26 mmol/L (21-32); GLUCOSE,RANDOM 175 mg/dL (74-106)
[2024-10-08 11:42] LABS: SGOT/AST 30 U/L (15-37); SGPT/ALT 33 U/L (13-61)
[2024-10-08 11:43] LABS: BILIRUBIN,TOTAL 0.3 mg/dL (0.2-1); CREATININE 1.2 mg/dL (0.55-1.3)
[2024-10-08 11:44] LABS: TOT PROT 6.2 g/dl (6.4-8.2)
[2024-10-08 11:46] LABS: ALK PHOS 79 U/L (45-117)
[2024-10-08] MEDS: PANTOPRAZOLE 40 MG TABLET PO SCH (15:46)
[2024-10-08] MEDS: QUEtiapine FUMARATE 100 MG TABLET (FP) PO SCH (22:39)
[2024-10-09] MEDS: chlordiazePOXIDE HCL 10 MG CAPSULE PO SCH (05:40)
[2024-10-09] MEDS: methaDONE HCL 10 MG TABLET (FOR DETOX USE ONLY) PO ONE (10:28)
[2024-10-10] MEDS: chlordiazePOXIDE HCL 10 MG CAPSULE PO SCH (06:00)
[2024-10-10] MEDS: chlordiazePOXIDE HCL 10 MG CAPSULE PO PRN (18:18)
[2024-10-11] MEDS: chlordiazePOXIDE HCL 10 MG CAPSULE PO ONE (05:34)
[2024-10-11] MEDS ORDERED: methaDONE HCL 10 MG TABLET (FOR DETOX USE ONLY) PO ONE (10:00)
[2024-10-11] MEDS: METHOCARBAMOL 500 MG TABLET PO PRN (21:22)
[2024-10-12 09:19] VITALS: BP 104/60; PULSE 70; RESP 18; TEMP 96.9
== END 2024-10-12 10:09 | disposition other institution (70) | DRG 773 ==
LOC: YASAS 18:29 → Y3N 21:59
PROVIDERS: ADMIT Allergy & Immunology; ATTEND Allergy & Immunology
PROC: HZ2ZZZZ Detoxification Services for Substance Abuse Treatment (ICD-10-PCS; principal; 2024-10-07)
DX: F10.230 Alcohol dependence with withdrawal, uncomplicated (principal); F11.20 Opioid dependence, uncomplicated; F14.20 Cocaine dependence, uncomplicated; F31.9 Bipolar disorder, unspecified; F19.24 Other psychoactive substance dependence with psychoactive substance-induced mood disorder; I10 Essential (primary) hypertension; K21.9 Gastro-esophageal reflux disease without esophagitis; M17.11 Unilateral primary osteoarthritis, right knee; M54.50 Low back pain, unspecified; G89.29 Other chronic pain
CPT/HCPCS: 36415; 80053; 80305; 80307; 85027; 86780; 93005; 93010

== ENCOUNTER 2024-10-12 15:31 | Inpatient (IN) | payer OTHER ==
[2024-10-12] MEDS ORDERED: BENZONATATE 200 MG CAPSULE PO PRN (15:53)
[2024-10-12] MEDS ORDERED: ACETAMINOPHEN 325 MG TABLET (FP) PO PRN (15:53)
[2024-10-12] MEDS ORDERED: MAGNESIUM HYDROX 2400MG/30ML ORAL SUSPENSION 30 ML CUP PO PRN (15:53)
[2024-10-12] MEDS ORDERED: guaiFENesin 600 MG TABLET.ER (FP) PO PRN (15:53)
[2024-10-12] MEDS ORDERED: IBUPROFEN 400 MG TABLET (FP) PO PRN (15:53)
[2024-10-12] MEDS ORDERED: IBUPROFEN 600 MG TABLET (FP) PO PRN (15:53)
[2024-10-12] MEDS ORDERED: LOPERAMIDE HCL 2 MG CAPSULE PO PRN (15:53)
[2024-10-12] MEDS ORDERED: BENZOCAINE/MENTHOL (CHLORASEPTIC ) LOZENGE MM PRN (15:53)
[2024-10-12] MEDS ORDERED: POLYETHYLENE GLYCOL (HEALTHYLAX) 3350 17 GM PACKET PO PRN (15:53)
[2024-10-12] MEDS ORDERED: hydrOXYzine PAMOATE 25 MG CAPSULE (FP) PO PRN (15:53)
[2024-10-12] MEDS ORDERED: NALOXONE (NARCAN) HCL 4 MG/0.1 ML SPRAY NS PRN (15:53)
[2024-10-12] MEDS ORDERED: MAG HYDROX/AL HYDROX/SIMETH 30 ML UNIT-DOSE CUP PO PRN (15:53)
[2024-10-12 16:37] VITALS: BMI 27.8
[2024-10-12] MEDS: amLODIPine BESYLATE 10 MG TABLET (FP) PO ONE (18:46)
[2024-10-12] MEDS: MELATONIN 5 MG TABLETS PO SCH (21:33)
[2024-10-12] MEDS: QUEtiapine FUMARATE 100 MG TABLET (FP) PO SCH (22:47)
[2024-10-12] MEDS: THIAMINE 100 MG TABLET PO SCH (22:47)
[2024-10-13] MEDS: ARIPiprazole 5 MG TABLET PO SCH (09:54)
[2024-10-13] MEDS: NICOTINE 14 MG/24 HOURS TOPICAL PATCH TD SCH (09:54)
[2024-10-13] MEDS: ESCITALOPRAM OXALATE 10 MG TABLET PO SCH (09:54)
[2024-10-13] MEDS: PANTOPRAZOLE 40 MG TABLET PO SCH (09:54)
[2024-10-13] MEDS: PRENATAL VITAMINS W/ FOLIC ACID TABLET (FP) PO SCH (09:55)
[2024-10-13] MEDS: amLODIPine BESYLATE 5 MG TABLET (FP) PO SCH (09:56)
[2024-10-13] MEDS: lamoTRIgine 25 MG TABLET PO SCH (09:56)
[2024-10-13] MEDS ORDERED: amLODIPine BESYLATE 5 MG TABLET (FP) PO SCH (10:00)
[2024-10-13 11:47] LABS: HEMATOCRIT 42.4 % (40.1-51.0); MCHC 30.7 g/dl (32.3-36.5); MEAN CELL VOLUME 91.8 fl (79.0-92.2); MEAN PLT VOLUME 9.4 fl (9.4-12.4); PLATELET COUNT 475 x10^3/uL (163-337); RDW 14.1 % (12.2-16.1)
[2024-10-13 11:50] LABS: CHLORIDE 104 mmol/L (98-107); POTASSIUM 3.8 mmol/L (3.5-5.1); SODIUM 139 mmol/L (136-145)
[2024-10-13 11:56] LABS: ALBUMIN 3.4 g/dl (3.4-5.0)
[2024-10-13 11:59] LABS: CREATININE 1.1 mg/dL (0.55-1.3); SGOT/AST 15 U/L (15-37); SGPT/ALT 31 U/L (13-61)
[2024-10-13 12:01] LABS: BILIRUBIN,TOTAL 0.4 mg/dL (0.2-1); TOT PROT 6.6 g/dl (6.4-8.2)
[2024-10-13 12:02] LABS: ALK PHOS 71 U/L (45-117)
[2024-10-13 12:32] LABS: BLOOD UREA NITROGEN 14.5 mg/dL (7-18); CALCIUM 9.2 mg/dL (8.5-10.1); CO2 26 mmol/L (21-32); GLUCOSE,RANDOM 186 mg/dL (74-106)
[2024-10-13 12:38] LABS: ANION GAP 9 mmol/L (4-13)
[2024-10-13] MEDS ORDERED: ONDANSETRON *ODT* 4 MG TABLET SL PRN (13:48)
[2024-10-13] MEDS: ONDANSETRON *ODT* 4 MG TABLET SL PRN (13:56)
[2024-10-13 16:43] LABS: SYPHILIS W/ RPR CONF NON-REACTIVE (NONREACTIVE)
[2024-10-13 17:12] LABS: HCV DIAGNOSTIC IN-HOUSE W/RFLX NON-REACTIVE (NONREACTIVE)
[2024-10-14 18:38] VITALS: BP 121/83; PULSE 120; RESP 17; TEMP 97.5
== END 2024-10-14 18:45 | disposition left against medical advice (07) | DRG 770 ==
LOC: YASAS 15:31 → Y3E 16:57
PROVIDERS: ADMIT Psychiatry & Neurology Pain Medicine; ATTEND Psychiatry & Neurology Pain Medicine
PROC: HZ42ZZZ Group Counseling for Substance Abuse Treatment, Cognitive-Behavioral (ICD-10-PCS; principal; 2024-10-12)
DX: F10.20 Alcohol dependence, uncomplicated (principal); F11.20 Opioid dependence, uncomplicated; F14.20 Cocaine dependence, uncomplicated; F17.210 Nicotine dependence, cigarettes, uncomplicated; F31.9 Bipolar disorder, unspecified; F41.9 Anxiety disorder, unspecified; I10 Essential (primary) hypertension; K21.9 Gastro-esophageal reflux disease without esophagitis; M19.90 Unspecified osteoarthritis, unspecified site
CPT/HCPCS: 36415; 80053; 80305; 80307; 83036; 85027; 86780; 86803; 87811; Q0162

== ENCOUNTER 2024-11-23 11:37 | Inpatient (IN) | payer OTHER ==
[2024-11-23 11:53] VITALS: BMI 27.3
[2024-11-23] MEDS ORDERED: BENZONATATE 200 MG CAPSULE PO PRN (12:18)
[2024-11-23] MEDS ORDERED: BISMUTH SUBSALICYLATE 262 MG/15 ML BTL PO PRN (12:18)
[2024-11-23] MEDS ORDERED: guaiFENesin 600 MG TABLET.ER (FP) PO PRN (12:18)
[2024-11-23] MEDS ORDERED: LOPERAMIDE HCL 2 MG CAPSULE PO PRN (12:18)
[2024-11-23] MEDS ORDERED: ONDANSETRON *ODT* 4 MG TABLET SL PRN (12:18)
[2024-11-23] MEDS ORDERED: POLYETHYLENE GLYCOL (HEALTHYLAX) 3350 17 GM PACKET PO PRN (12:18)
[2024-11-23] MEDS ORDERED: NALOXONE (NARCAN) HCL 4 MG/0.1 ML SPRAY NS PRN (12:18)
[2024-11-23] MEDS ORDERED: IBUPROFEN 400 MG TABLET (FP) PO PRN (12:18)
[2024-11-23] MEDS ORDERED: DICYCLOMINE HCL 10 MG CAPSULE PO PRN (12:18)
[2024-11-23] MEDS ORDERED: IBUPROFEN 600 MG TABLET (FP) PO PRN (12:18)
[2024-11-23] MEDS ORDERED: BENZOCAINE/MENTHOL (CHLORASEPTIC ) LOZENGE MM PRN (12:18)
[2024-11-23] MEDS ORDERED: ACETAMINOPHEN 325 MG TABLET (FP) PO PRN (12:18)
[2024-11-23] MEDS ORDERED: MAGNESIUM HYDROX 2400MG/30ML ORAL SUSPENSION 30 ML CUP PO PRN (12:18)
[2024-11-23] MEDS: NALTREXONE HCL 50 MG TABLET PO ONE (13:25)
[2024-11-23] MEDS: THIAMINE 100 MG TABLET PO SCH (22:51)
[2024-11-23] MEDS: MELATONIN 5 MG TABLETS PO SCH (22:51)
[2024-11-23] MEDS: MAG HYDROX/AL HYDROX/SIMETH 30 ML UNIT-DOSE CUP PO PRN (22:52)
[2024-11-23] MEDS: METHOCARBAMOL 500 MG TABLET PO PRN (22:53)
[2024-11-24] MEDS: PRENATAL VITAMINS W/ FOLIC ACID TABLET (FP) PO SCH (09:51)
[2024-11-24] MEDS: NALTREXONE HCL 50 MG TABLET PO SCH (09:51)
[2024-11-24] MEDS ORDERED: chlordiazePOXIDE HCL 25 MG CAPSULE PO PRN (10:07)
[2024-11-24] MEDS: chlordiazePOXIDE HCL 25 MG CAPSULE PO SCH (10:48)
[2024-11-24] MEDS: PANTOPRAZOLE 40 MG TABLET PO SCH (10:48)
[2024-11-24 15:06] LABS: HEMOGLOBIN 12.8 g/dL (13.7-17.5); MEAN CELL VOLUME 90.3 fl (79.0-92.2); MEAN PLT VOLUME 9.7 fl (9.4-12.4); PLATELET COUNT 428 x10^3/uL (163-337); RDW 14.5 % (12.2-16.1)
[2024-11-24 15:23] LABS: ALBUMIN 3.4 g/dl (3.4-5.0); BLOOD UREA NITROGEN 12.4 mg/dL (7-18); CALCIUM 9.4 mg/dL (8.5-10.1)
[2024-11-24 15:27] LABS: CREATININE 1.1 mg/dL (0.55-1.3)
[2024-11-24 15:29] LABS: BILIRUBIN,TOTAL 0.2 mg/dL (0.2-1); TOT PROT 6.2 g/dl (6.4-8.2)
[2024-11-24] MEDS: QUEtiapine FUMARATE 100 MG TABLET (FP) PO SCH (22:20)
[2024-11-25] MEDS: amLODIPine BESYLATE 5 MG TABLET (FP) PO SCH (10:22)
[2024-11-25] MEDS: hydrOXYzine PAMOATE 25 MG CAPSULE (FP) PO PRN (22:19)
[2024-11-26] MEDS: chlordiazePOXIDE HCL 25 MG CAPSULE PO SCH (06:00)
[2024-11-27] MEDS ORDERED: chlordiazePOXIDE HCL 10 MG CAPSULE PO PRN
[2024-11-27] MEDS: chlordiazePOXIDE HCL 10 MG CAPSULE PO SCH (05:41)
[2024-11-28] MEDS: chlordiazePOXIDE HCL 10 MG CAPSULE PO SCH (06:00)
[2024-11-28 12:44] VITALS: RESP 18
[2024-11-28 17:00] VITALS: BP 142/94; PULSE 63; TEMP 98.4
[2024-11-29] MEDS ORDERED: chlordiazePOXIDE HCL 10 MG CAPSULE PO ONE (05:00)
== END 2024-11-28 20:45 | disposition home or self-care (01) | DRG 774 ==
LOC: YASAS 11:37 → Y6N 12:54
PROVIDERS: ADMIT Allergy & Immunology; ATTEND Allergy & Immunology
PROC: HZ2ZZZZ Detoxification Services for Substance Abuse Treatment (ICD-10-PCS; principal; 2024-11-23)
DX: F10.230 Alcohol dependence with withdrawal, uncomplicated (principal); F14.20 Cocaine dependence, uncomplicated; F13.20 Sedative, hypnotic or anxiolytic dependence, uncomplicated; F17.210 Nicotine dependence, cigarettes, uncomplicated; F31.9 Bipolar disorder, unspecified; F19.282 Other psychoactive substance dependence with psychoactive substance-induced sleep disorder; F19.24 Other psychoactive substance dependence with psychoactive substance-induced mood disorder; F41.9 Anxiety disorder, unspecified; I10 Essential (primary) hypertension; K21.9 Gastro-esophageal reflux disease without esophagitis; M17.11 Unilateral primary osteoarthritis, right knee; M54.50 Low back pain, unspecified; G89.29 Other chronic pain
CPT/HCPCS: 36415; 80053; 80305; 80307; 85027; 86780; 93005; 93010